=== PATIENT | male | born 1955 | race Caucasian/White ===

== ENCOUNTER 2023-11-20 21:14 | Inpatient (IN) | payer MEDICARE, SELFPAY ==
[2023-11-20 16:12] VITALS: BP 134/95
[2023-11-20 16:43] LABS: % Basophils 0.4 % (0-2); % Eosinophils 1.3 % (0-6); % Immature Granulocytes 0.4 % (0-0.5); % Lymphocytes 15.2 % (20.5-51.1); % Monocytes 11.9 % (1.7-9.3); % Neutrophils 70.8 % (42.2-75.2); Absolute Eosinophils 0.1 10^3/uL (0-0.7); Absolute Lymphocytes 1.7 10^3/uL (1.2-3.4); Absolute Monocytes 1.3 10^3/uL (0.1-0.6); Absolute Neutrophils 7.7 10^3/uL (1.4-6.5); Hematocrit 39.2 % (39.0-52.0); Hemoglobin 13.5 g/dL (13.0-18.0); Mean Corp Hgb Conc. 34.4 g/dL (33.0-37.0); Mean Corpuscular Hgb 29.6 pg (27.0-31.0); Mean Platelet Volume 9.7 fL (7.4-10.4); Nucleated Red Blood Cells % 0 % (-); Platelet Count 428 10^3/uL (130-400); Red Blood Cell Count 4.56 10^6/uL (4.70-6.10); Red Cell Dist. Width 13.5 % (11.5-14.5); White Blood Cell Count 10.9 10^3/uL (4.8-10.8)
[2023-11-20 16:52] LABS: COVID-19 Antigen Negative (Negative)
[2023-11-20 16:54] LABS: ALT (SGPT) 45 U/L (0-50); AST (SGOT) 26 U/L (17-59); Albumin 3.8 g/dl (3.5-5.0); Alkaline Phosphatase 93 U/L (38-126); Blood Urea Nitrogen 44 mg/dl (9-20); Calcium 9.4 mg/dl (8.4-10.2); Carbon Dioxide 26 mmol/L (22-30); Chloride 98 mmol/L (98-107); Glucose 247 mg/dl (70-99); Potassium 4.4 mmol/L (3.5-5.1); Sodium 135 mmol/L (135-145); Total Bilirubin 1.7 mg/dl (0.2-1.3); Total Protein 6.2 g/dl (6.3-8.2); eGFR > 60.00
[2023-11-20 17:04] LABS: NT-proBNP 327 pg/ml; Troponin I < 0.012 ng/ml
[2023-11-20 19:15] VITALS: BP 123/88
[2023-11-20] MEDS: LOW STRENGTH ASPIRIN 324 MG PO (19:18)
--- NOTE | 2023-11-20 19:21 | ED.GENMED ---
History of Present Illness
General
Chief Complaint: Chest Pain
Source: patient and spouse
Time Seen by Provider: 11/20/23 18:48
Travel History
Have you had any contact with someone who has COVID-19?: No
Do you have any symptoms of coronavirus? Fever > 100 degrees, chills, cough, shortness of breath, sore throat, loss of taste or smell, muscle aches, or headache?: No
History of Present Illness
History of Present Illness:
68-year-old male with past medical history of hypertension, hyperlipidemia, diabetes presenting to the emergency department for evaluation after he started to experience some chest tightness, lower extremity edema, exertional dyspnea and fatigue
over the last few days. Patient notes that 2 nights ago he went from his first floor upstairs to go to sleep and upon getting to the top of the stairs developed a chest pressure combined with shortness of breath that lasted about 5 minutes and
resolved spontaneously with rest. Patient states he was also concerned because he noticed some swelling to the bilateral lower extremities and felt that he had some distention in the lower part of his abdomen and could not fully button his jeans.
Patient states his symptoms at present are mainly exertional dyspnea and he is currently denying any chest discomfort. Patient notes he had a stress test about 10 years ago and believes the results of that test were unremarkable. Family history
was significant for mother having a cardiac event around the age of 70. Patient reports his last hemoglobin A1c was done a few weeks ago which alysia from 6.2-6.8 and patient's primary care increased his Trulicity.
Past History
Past History
ED Past Medical History: GERD, HTN, Hypercholesterolemia and NIDDM
ED Past Surgical History: Other (Bilateral inguinal hernia repair)
Social History
Tobacco: Non-smoker
Alcohol: None
Drug: None
Personal:
Living: with family
Employment: Employed
Family History
Family History: Other (No significant)
Review of Systems
Review of Systems
All Other Systems: ROS reviewed and negative except as documented in HPI and ROS
Phy Exam
Physical Exam
Physical Exam:
GENERAL: Alert , in no apparent distress
Head: Normocephalic atraumatic
EYE: conjunctiva clear
NECK: Supple
ENT: o/p clr, mmm.
CARDIAC: Regular rate and rhythm, no murmur
LUNGS: Clear breath sounds bilaterally, no acute respiratory distress, no wheezes/rales/rhonchi
Abdomen: Soft, nontender, nondistended
NEUROLOGICAL: Alert and oriented
SKIN: Warm and dry, skin intact.
MUSCULOSKELETAL: well perfused. Trace pitting edema to the distal third lower extremity
PSYCH: Normal and appropriate interaction.
Scores
Heart Score for Chest Pain Patients
STEMI patient?: No
History: Moderately Suspicious
ECG: Normal
Age: >/= 65 years
Risk Factors: 1 or 2 Risk Factors
Troponin: </= Normal Limit
Heart Score for Chest Pain Patients: 4
Heart Score Risk: 20.3% MACE over next 6 weeks
Course
Orders/Labs/Results
Orders:
Orders
11/20/23 16:31
CMP [Comprehensive Metabolic Panel] Urgent
COVID-19 Antigen Urgent
Source: Nasal Swab
Complete Blood Count/With Diff Urgent
NT-proBNP Urgent
Troponin I Urgent
11/20/23 19:10
Aspirin Chewable [Low Strength Aspirin] 324 mg PO NOW STA
CR Chest - 2 Views Urgent
Comment:
Reason For Exam: chest pain, SOB
11/20/23 19:14
Electrocardiogram (*1) Urgent
Reason for Study: Shortness of Breath
EKG- Treatment ONCE
Abnormal Lab Results
11/20/23
16:31
WBC 10.9 H 10^3/uL
(4.8-10.8)
RBC 4.56 L 10^6/uL
(4.70-6.10)
Plt Count 428 H 10^3/uL
(130-400)
Absolute Neuts (auto) 7.7 H 10^3/uL
(1.4-6.5)
Absolute Monos (auto) 1.3 H 10^3/uL
(0.1-0.6)
Lymphocytes % 15.2 L %
(20.5-51.1)
Monocytes % 11.9 H %
(1.7-9.3)
BUN 44 H mg/dl
(9-20)
Glucose 247 H mg/dl
(70-99)
Total Bilirubin 1.7 H mg/dl
(0.2-1.3)
Total Protein 6.2 L g/dl
(6.3-8.2)
11/20/23 16:31
11/20/23 16:31
Vital Signs
Initial and Last Documented VS:
Initial Vital Signs
Temp Pulse Resp BP Pulse Ox
98.1 F 100 16 134/95 100
11/20/23 16:12 11/20/23 16:12 11/20/23 16:12 11/20/23 16:12 11/20/23 16:12
Last Documented Vital Signs
Temp Pulse Resp BP Pulse Ox
98.1 F 104 17 121/104 98
11/20/23 16:12 11/20/23 19:30 11/20/23 19:30 11/20/23 20:03 11/20/23 19:37
MDM/Problems Addressed
Differential Diagnosis Includes:
Angina, NSTEMI, CHF/cardiomyopathy/valvular dysfunction, I do not have concern for infectious etiology, peripheral vascular disease
MDM/Problems Addressed:
68-year-old male present emergency department for evaluation of chest discomfort, exertional dyspnea, lower extremity edema and fatigue. 2 nights ago patient had an episode of what appears to be angina, currently chest pain-free. Labs were
initiated in triage and he has a reassuring troponin and a BNP. EKG did show a sinus tachycardia but otherwise no evidence for acute ischemic changes. Patient has multiple risk factors including hypertension, hyperlipidemia and at this time
seemingly uncontrolled diabetes with an elevated A1c on last recheck. Patient also has a family history with mother having a cardiac event in her 70s. Based off of these risk factors I do feel would be beneficial for patient to be admitted and
further evaluated by cardiology team. Patient and are in agreement with this plan. Will admit to hospitalist service.
Chronic conditions affecting care: DM and HTN
Acute Exacerbation and/or Progression of Chronic Illness: DM
*Pulse Oximetry
Patient hypoxic: no
*EKG
Interpreted by ED Provider?: Yes
Comparison EKG: no comparison EKG present
Heart Rate: 102
Rate: tachycardiac
Rhythm: sinus
[place]: normal axis
Ischemia: no ischemia
*Carpentry Foreman Interpretation
Rate: normal
Rhythm: sinus
*Critical Care Note
Total Time (30-74mins, 75-104mins- exclusive of procedures): Not Applicable
Patient Management
Discussion with other providers: Hospitalist
Escalation/DeEscalation of care consider admission/obs:
Hospitalist accepts patient for continued evaluation and treatment.
ED Attending Note
-
Portions of this chart may have been created with voice recognition software.� Occasional wrong word or��sound alike� substitutions may have occurred due to the inherent limitations of voice recognition software.
Discharge Plan
Departure
Patient Disposition: Admit
Date of Disposition: 11/20/23
Time of Disposition: 19:22
Presentation/result/management discussed w/ accepting MD/DO: Hospitalist
Discharge Problem:
Angina pectoris
Prescriptions:
No Action
metoprolol succinate 50 MG tablet extended release 24 hr
50 mg PO DAILY
omeprazole 40 MG capsule,delayed release(DR/EC)
40 mg PO QPM
ezetimibe 10 MG tablet
10 mg PO DAILY
glyburide-metformin 5 MG/500 MG tablet
1 tab PO BID Qty: 0 0RF
azithromycin 250 mg Tablet
0 mg PO .COMPLEX
Patient Comments:
PATIENT OUTPATIENT DIETITIAN ON 11/18/23
Rx Instructions:
For 250 mg dose pack: take 500 mg today (day 1), then 250 mg for 4 days (days 2-5)
tamsulosin [Flomax] 0.4 mg Capsule
0.4 mg PO QPM
amlodipine-benazepril 5-20 mg Capsule
1 cap PO DAILY
pioglitazone [Actos] 30 mg Tablet
30 mg PO DAILY
finasteride 5 mg Tablet
5 mg PO QPM
Trulicity 0.75 mg/0.5 mL Pen Injector
0.75 mg SC HARLEY
Interventions
Interventions:
*Risk Screen - Suicide Last Done: 11/20/23 19:27
*General Assessment Last Done: 11/20/23 19:27
*Neglect/Abuse Screening Last Done: 11/20/23 19:27
ED- Fall Risk Assessment Last Done: 11/20/23 19:27
*ED COVID-19 Vaccine History Last Done: 11/20/23 16:12
ED- Cardiac Assessment Last Done: 11/20/23 19:27
[2023-11-20 20:03] VITALS: BP 121/104
--- NOTE | 2023-11-20 20:33 | HPS.HSE ---
Addendum entered and electronically signed by Jonathan Montanez DO 11/20/23 21:08:
Patient seen and examined independently. Agree with findings and plan as set forth by Angelica Chang NP.
Patient is a 68y M with PMH significant for HTN and DM-II who presents to ED complaining of generalized fatigue, dyspnea with activity, weight gain and edema. Patient states that symptoms have been progressive over the past several days. He
notes 12 lbs weight gain in the past 2 weeks. He reports and episode several nights ago of left-sided chest pain, diaphoresis and SOB while climbing the stairs to go to bed. He did not seek medical attention at that time.
Patient has no prior history of known heart disease, etc.
Ass:
Chest Pain
Acute CHF - Unknown Type
Benign Hypertension
DM-II
BPH
Plan:
Admit for further evaluation and treatment.
Rule out ischemia - especially with episode of chest pain, diaphoresis, etc of a few days ago.
Clinically seems likely CHF here with weight gain, edema, dyspnea and fatigue.
IV Lasix and follow I/Os, daily weights, etc.
Check Echo.
Cardio evaluation for additional recommendations
Will likely benefit from eventual ischemic evaluation - timing to be determined.
Discontinue Actos indefinitely.
Hold other PO DM meds acutely and resume on discharge.
SSI coverage as needed. Update A1C.
Original Note:
Family Physician
-
Family Physician: Olya Suarez
Chief Complaint
-
Chest pain
History of Present Illness
68-year-old male with past medical history of hypertension, hyperlipidemia, diabetes presenting to the emergency department for chest tightness, lower extremity edema, exertional dyspnea and fatigue over the last few days.� He states that he has
noticed a 12 pound weight gain in the past 2 weeks. He says his b/l LEs are swollen and his abdomen feels full and distended. He also states that a few nights ago he had dyspnea on exertion after ascending a flight of stairs that lasted about 5
minutes and resolved spontaneously with rest.� Patient states he had a stress test over 10 years ago that was unremarkable.� Family history was significant for mother having a cardiac event around the age of 70.�
Medical History
Past Medical History
Past Medical History: Reports HTN, Hypercholesterolemia and NIDDM
Past Surgical History: Reports None
Social History
Tobacco: Non-smoker
Alcohol: None
Drug: None
Personal:
Living: With Family
Family History
Family History: Hypertension ([place] Mother)
Allergies / Home Medications
Allergies reflects when Allergies were last updated in [facility].
Home Medications with original date entered in [facility]
Allergy/Medication List:
Allergies
Allergy/AdvReac Type Severity Reaction Status Date / Time
No Known Allergies Allergy Verified 07/29/16 22:41
Home Medications
ezetimibe 10 mg tablet 10 mg PO DAILY 07/29/16
metoprolol succinate 50 mg tablet,extended release 24 hr 50 mg PO DAILY 07/29/16
omeprazole 40 mg capsule,delayed release 40 mg PO QPM 07/29/16
glyburide 5 mg-metformin 500 mg tablet 1 tab PO BID ##0 08/01/16
amlodipine 5 mg-benazepril 20 mg capsule 1 cap PO DAILY 11/20/23
azithromycin 250 mg tablet 0 mg PO .COMPLEX 11/20/23
dulaglutide 0.75 mg/0.5 mL subcutaneous pen injector (Trulicity) 0.75 mg SC HARLEY 11/20/23
finasteride 5 mg tablet 5 mg PO QPM 11/20/23
pioglitazone 30 mg tablet (Actos) 30 mg PO DAILY 11/20/23
tamsulosin 0.4 mg capsule (Flomax) 0.4 mg PO QPM 11/20/23
Review of Systems
-
History Source: Patient
A 12 point ROS was completed and negative except as noted: Yes
Constitutional: Reports Weight Gain and Fatigue
EENT: Reports No Symptoms
Respiratory: Reports Cough
Cardiac: Reports Chest Pain
Abdomen/GI: Reports No Symptoms
: Reports No Symptoms
Musculoskeletal: Reports Edema (b/l LE)
Skin: Reports No Symptoms
Neurological: Reports No Symptoms
Endocrine: Reports No Symptoms
Hematologic/Lymphatic: Reports No Symptoms
Psych: Reports No Symptoms
Physical Exam
Vital Signs
Vital Signs
Temp Pulse Resp BP Pulse Ox
98.1 F 104 17 121/104 98
11/20/23 16:12 11/20/23 19:30 11/20/23 19:30 11/20/23 20:03 11/20/23 19:37
Physical Exam
General: Well Developed, Well Nourished and Conversant
HEENT: NormoCephalic, Anicteric, Moist mucous membranes and Atraumatic
Respiratory: Clear
Cardiac: S1/S2 and Regular Rhythm
Breast: Deferred by me
GI: Soft, Non Tender and Distended
Rectal: Deferred by Provider
Genito-urinary: Deferred by me
Musculoskeletal: No Clubbing, No Cyanosis, Edema, Left Lower Extremity (+2 pitting edema) and Edema, Right Lower Extremity (+2 pitting edema)
Skin: Warm and Dry
Neuro: Awake, Alert, Oriented and AO x 3
Hematologic/Lymphatic: No Lymphadenopathy
Psych: Calm and Intact Judgment/Insight
Laboratory Results
-
11/20/23 16:31
11/20/23 16:31
Laboratory Results
Total Bilirubin 1.7 mg/dl (0.2-1.3) H 11/20/23 16:31
AST 26 U/L (17-59) 11/20/23 16:31
ALT 45 U/L (0-50) 11/20/23 16:31
Alkaline Phosphatase 93 U/L (38-126) 11/20/23 16:31
Troponin I < 0.012 ng/ml 11/20/23 16:31
Impression/Plan
-
IMPRESSION/PLAN:
Admit to Telemetry under Hospitalist service
#Acute Heart Failure
-c/s Cardiology
-Initial troponin negative, monitor and trend to peak
-EKG shows sinus tachycardia
-Start Lasix 20mg IV now
#Essential Hypertension
-Continue amlodipine-benazepril
#HLD
-Continue ezetimibe, patient allergic to statins
#NIDDM
-Hold oral hypoglycemics while acutely ill
-SSI
-Check Hgb A1c in am
#Benign prostatic hyperplasia
-Continue flomax and finasteride
Full Code
DVT Prophylaxis: Lovenox
[2023-11-20] MEDS: LASIX 20 MG IV (20:38)
[2023-11-20 21:46] VITALS: BMI 29.8
[2023-11-20 21:47] VITALS: BP 133/85
[2023-11-20 22:12] LABS: Troponin I < 0.012 ng/ml
--- NOTE | 2023-11-20 22:33 | PTCARENOTE ---
Pt. admitted from E.D., AAO x 3, vs stable, ST on monitor, call amador within reach.
[2023-11-20 23:48] LABS: Glucose - Point of Care 276 mg/dl (70-99)
[2023-11-21 01:08] LABS: Troponin I < 0.012 ng/ml
[2023-11-21 03:13] VITALS: BP 114/81
[2023-11-21 05:53] LABS: Glucose - Point of Care 238 mg/dl (70-99)
[2023-11-21 05:56] LABS: % Basophils 0.4 % (0-2); % Eosinophils 1.6 % (0-6); % Immature Granulocytes 0.4 % (0-0.5); % Lymphocytes 16.1 % (20.5-51.1); % Neutrophils 69.5 % (42.2-75.2); Absolute Eosinophils 0.2 10^3/uL (0-0.7); Absolute Lymphocytes 1.7 10^3/uL (1.2-3.4); Absolute Monocytes 1.2 10^3/uL (0.1-0.6); Absolute Neutrophils 7.2 10^3/uL (1.4-6.5); Hematocrit 36.6 % (39.0-52.0); Hemoglobin 12.3 g/dL (13.0-18.0); Mean Corp Hgb Conc. 33.6 g/dL (33.0-37.0); Mean Corpuscular Hgb 29.6 pg (27.0-31.0); Mean Platelet Volume 10.3 fL (7.4-10.4); Nucleated Red Blood Cells % 0 % (-); Platelet Count 375 10^3/uL (130-400); Red Blood Cell Count 4.16 10^6/uL (4.70-6.10); Red Cell Dist. Width 13.3 % (11.5-14.5); White Blood Cell Count 10.3 10^3/uL (4.8-10.8)
[2023-11-21 06:00] VITALS: BMI 29.8
[2023-11-21 06:19] LABS: ALT (SGPT) 40 U/L (0-50); AST (SGOT) 23 U/L (17-59); Albumin 3.3 g/dl (3.5-5.0); Alkaline Phosphatase 86 U/L (38-126); Blood Urea Nitrogen 55 mg/dl (9-20); Carbon Dioxide 24 mmol/L (22-30); Chloride 97 mmol/L (98-107); Estimated Creatinine Clearance 49 ml/min; Glucose 247 mg/dl (70-99); Potassium 4.9 mmol/L (3.5-5.1); Sodium 131 mmol/L (135-145); Total Bilirubin 1.2 mg/dl (0.2-1.3); Total Protein 5.7 g/dl (6.3-8.2); Troponin I < 0.012 ng/ml; eGFR 46.93
[2023-11-21] MEDS: NOVOLOG FLEXPEN-LOW RESISTANCE 2 UNITS SC ×2 (07:26→11:22)
[2023-11-21] MEDS: ZETIA 10 MG PO (08:11)
[2023-11-21] MEDS: LOW STRENGTH ASPIRIN 81 MG PO (08:11)
[2023-11-21] MEDS: LOTREL 5 MG/20 MG 1 CAPSULE PO (08:16)
[2023-11-21] MEDS: LASIX 20 MG IV (08:17)
--- NOTE | 2023-11-21 10:18 | W.PN.HOSP.TC ---
Addendum entered and electronically signed by Rj Fleming DO 11/21/23 15:01:
Lower extremity bilateral Doppler ultrasound negative for DVT.
D-dimer elevation noted.
Hold off on CT PE given ARMANDO.
Unable to do pulmonary ventilation/perfusion lung scan given weekend.
Spoke with cardiology as well as patient. Plan to start IV heparin empirically awaiting further workup for pulmonary embolism on Wednesday. If renal function improves, can consider doing CT PE on Wednesday. Otherwise will need pulmonary
ventilation/perfusion lung scan to rule out pulmonary embolism. Patient agrees with plan.
Original Note:
Today's Communication/Plan
-
Resume diet
Cardiology consult
Stop Lasix
Stop AKIN inhibitor
Labs in the morning
Assessment / Plan
Assessment / Plan
Gen-AAOx3, NAD, obese
HEENT-NC, AT, anicteric, clear oral mm
Neck-supple
CV-reg, no M, +S1/S2
Lungs-clear B/L
Abd-soft, NT, ND
Ext-no edema
Musculoskeletal-no cyanosis, clubbing
Skin-warm and dry
Neuro-grossly non-focal
Psych-calm, cooperative
Chest pressure -unclear if angina versus other etiology. Troponins negative. Monitor on telemetry. Cardiology consulted. Complaining of also dyspnea on exertion. States he had a negative stress test 20 years ago.
Resume diet today.
No convincing evidence of congestive heart failure. Chest x-ray clear. BNP 327. Not overtly volume overloaded.
ARMANDO -hold further doses of Lasix. Stop AKIN inhibitor. Check bladder scan. Repeat labs in the morning.
Hyponatremia - due to hyperglycemia.
DM2 with hyperglycemia -hemoglobin A1c 7.0%. Glucose 247 this morning. Hold oral agents, use low resistance aspart scale.
BPH
Obesity due to excess calories
Full code
Anticipated Discharge: 24 - 48 hours
Subjective/Interval History
-
Date of Service: November 21, 2023
Patient seen and examined. Complaining of feeling lightheaded.
Objective Data
-
Labs:
Laboratory Results
11/21/23
05:36
WBC 10.3
Hgb 12.3 L
Hct 36.6 L
Plt Count 375
Sodium 131 L
Potassium 4.9
Chloride 97 L
Carbon Dioxide 24
BUN 55 H
Creatinine 1.6 H
Glucose 247 H
Calcium 9.0
Total Bilirubin 1.2
AST 23
ALT 40
Alkaline Phosphatase 86
Vital Signs:
Vital Signs
Temp Pulse Resp BP Pulse Ox
97.8 F 96 16 114/81 98
11/21/23 03:13 11/21/23 03:13 11/21/23 03:13 11/21/23 03:13 11/21/23 03:13
Review of Systems
-
History Source: Patient
All other systems: Reviewed and negative
--- NOTE | 2023-11-21 10:29 | CON.CAR ---
Consultation
Consultation Request
Date/Time Consultation Requested: 11/20/2023 at 2030
Date/Time Consultation Performed: 11/21/2023 at 11 AM
Requesting Provider: Melvina Chang
Performing Provider: Cristofer Tran
Reason for Consultation: Chest pain, CHF
Medical History
-
Chief Complaint: Chest pain, dyspnea
History of Present Illness:
68-year-old man who is developed generalized fatigue, [place], edema and weight gain over the course of several days. His weight is up about 12 pounds. He is also had some left-sided chest climbing stairs yesterday. His son says he has not been well
since he fell striking the left side of his body about a month ago. He has lower extremity edema left greater than right. His dyspnea was notable about a week ago, and also with bending over. He is only had 1 episode of chest discomfort. No
history of phlebitis.
PMH:
Hypertension
Hypercholesterolemia
Type 2 diabetes
Past Medical History
Past Medical History: Other (See HPI)
Past Surgical History: None
Social History
Tobacco: Non-Smoker
Alcohol: None
Drug: None
Personal:
Living: With Family
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
Family History
Family History: Reviewed & Not Pertinent
Allergies / Home Medications
Allergy/AdvReac Type Severity Reaction Status Date / Time
No Known Allergies Allergy Verified 07/29/16 22:41
Medication Instructions Recorded Confirmed Type
ezetimibe 10 mg tablet 10 mg PO DAILY High Cholesterol 07/29/16 11/20/23 History
metoprolol succinate 50 mg 50 mg PO DAILY Blood Pressure 07/29/16 11/20/23 History
tablet,extended release 24 hr
omeprazole 40 mg capsule,delayed 40 mg PO QPM Gastrointestinal Issue 07/29/16 11/20/23 History
release
glyburide 5 mg-metformin 500 mg 1 tab PO BID ##0 08/01/16 11/20/23 Rx
tablet
amlodipine 5 mg-benazepril 20 mg 1 cap PO DAILY Blood Pressure 11/20/23 11/20/23 History
capsule
azithromycin 250 mg tablet 0 mg PO .COMPLEX Infection 11/20/23 11/20/23 History
dulaglutide 0.75 mg/0.5 mL 0.75 mg SC HARLEY Diabetes 11/20/23 11/20/23 History
subcutaneous pen injector
(Trulicity)
finasteride 5 mg tablet 5 mg PO QPM Urinary Issue 11/20/23 11/20/23 History
pioglitazone 30 mg tablet (Actos) 30 mg PO DAILY Diabetes 11/20/23 11/20/23 History
tamsulosin 0.4 mg capsule (Flomax) 0.4 mg PO QPM Urinary Issue 11/20/23 11/20/23 History
Review of Systems
-
All other systems: Negative unless noted
Physical Exam
Vital Signs
Temp Pulse Resp BP Pulse Ox
36.6 C 96 16 114/81 98
11/21/23 03:13 11/21/23 03:13 11/21/23 03:13 11/21/23 03:13 11/21/23 03:13
Lab Results
11/21/23 05:36
11/21/23 05:36
Troponin I < 0.012 ng/ml 11/21/23 05:36
Yer-R-Hcrsnpowees Pept 327 pg/ml 11/20/23 16:31
Physical Exam
General: No Apparent Distress
HEENT: Normocephalic
Respiratory: Clear and Other (Perhaps mildly tachypneic.)
Cardiac: S1/S2, Regular Rhythm and JVD (Possibly elevated)
GI: Soft and Non Distended
Musculoskeletal: Edema (With prominent varicosities on right, with edema that is asymmetric, right greater than left)
Skin: Dry
Neuro: AO x 3
Impression / Plan
-
Impression:
Chest discomfort, dyspnea on exertion, weight gain
Hypertension
Hypercholesterolemia
Type 2 diabetes
ARMANDO on mild CKD
Plan:
He presents with a picture that does not hang together well. His chest pain occurred with exertion but his D-dimer is undetectable. ACS possible but seems relatively unlikely.
Similarly, he tells a story consistent with heart failure and he has edema, but if heart failure is present it is mostly right-sided. His lungs are clear his chest x-ray is fairly unimpressive.
I have some concerns about thromboembolic disease with asymmetric swelling in the legs dyspnea and left-sided chest pain with a small left pleural effusion. Will check a cheat D-dimer and an ultrasound of the leg veins. CT scan could be
problematic given that he has acute kidney injury now and having received doses of Lasix.
Agree with holding Lasix.
Will check an echocardiogram. Will eventually need to consider an ischemic evaluation, invasive versus noninvasive.
Data Reviewed
-
EKG: Tracing Personally Visualized and interpreted (Sinus rhythm, nonspecific ST and T changes)
Radiology: Image Personally Visualized and interpreted (Chest x-ray mild cardiomegaly, mild vascular congestion)
Labs: Labs Reviewed by me (Hemoglobin 12.3, white count 10.3, sodium 131, potassium 4.9, BUN and creatinine 55 and 1.6, creatinine was 1.3 on the 24th, proBNP is 327, troponin is undetectable)
Old Records: Reviewed
[2023-11-21 10:59] LABS: Glucose - Point of Care 247 mg/dl (70-99)
[2023-11-21 11:33] LABS: D-Dimer 1.94 ug/mlFEU (0.00-0.50)
[2023-11-21 12:40] VITALS: BP 129/84
[2023-11-21 13:30] LABS: Glucose - Point of Care 360 mg/dl (70-99)
[2023-11-21 15:24] LABS: Hematocrit 37.4 % (39.0-52.0); Hemoglobin 12.5 g/dL (13.0-18.0); Mean Corp Hgb Conc. 33.4 g/dL (33.0-37.0); Mean Corpuscular Hgb 29.4 pg (27.0-31.0); Mean Platelet Volume 10.3 fL (7.4-10.4); Platelet Count 410 10^3/uL (130-400); Red Blood Cell Count 4.25 10^6/uL (4.70-6.10); Red Cell Dist. Width 13.6 % (11.5-14.5)
[2023-11-21 15:31] LABS: APTT 36.8 Sec (23.4-35.0)
--- NOTE | 2023-11-21 15:36 | CM ---
CM following re: d/c planning.
CM met with pt and at bedside to complete IA.
They reside together in private residence.
Pt reports he is independent with mobility and ADLs.
No DME or VN in the home.
PCP is Dr. Suarez and pharmacy is [facility] in [place].
Pt does not expect any d/c needs.
CM will continue to follow.
[2023-11-21 15:52] VITALS: BP 133/82
[2023-11-21] MEDS: HEPARIN 8000 UNITS IV (16:33)
[2023-11-21] MEDS: HEPARIN 25000 UNITS/250 ML IV (16:34)
[2023-11-21] MEDS: NOVOLOG FLEXPEN-LOW RESISTANCE 5 UNITS SC (17:57)
[2023-11-21] MEDS: PROSCAR 5 MG PO (17:57)
[2023-11-21] MEDS: FLOMAX 0.400000000000000022 MG PO (17:57)
[2023-11-21] MEDS: PROTONIX 40 MG PO (17:57)
[2023-11-21 17:58] LABS: Glucose - Point of Care 353 mg/dl (70-99)
[2023-11-21] MEDS: NOVOLOG FLEXPEN 6 UNITS SC (17:58)
[2023-11-21 19:00] VITALS: BP 118/84
[2023-11-21 21:34] LABS: Glucose - Point of Care 257 mg/dl (70-99)
[2023-11-21] MEDS: LANTUS 0.100000000000000006 UNITS SC (21:34)
[2023-11-21] MEDS: NOVOLOG FLEXPEN-LOW RESISTANCE 3 UNITS SC (21:35)
[2023-11-21 23:00] VITALS: BP 108/73
[2023-11-21 23:58] LABS: APTT 180.4 Sec (23.4-35.0)
[2023-11-22] VITALS (33 sets, daily range): BP systolic 85–148; BP diastolic 56–93; BMI 30.4; BMI 30.6
[2023-11-22 07:30] LABS: Glucose - Point of Care 266 mg/dl (70-99)
[2023-11-22 08:05] LABS: APTT 67.6 Sec (23.4-35.0)
[2023-11-22 08:11] LABS: Blood Urea Nitrogen 68 mg/dl (9-20); Calcium 8.8 mg/dl (8.4-10.2); Carbon Dioxide 17 mmol/L (22-30); Chloride 96 mmol/L (98-107); Estimated Creatinine Clearance 59 ml/min; Glucose 256 mg/dl (70-99); Potassium 4.5 mmol/L (3.5-5.1); Sodium 128 mmol/L (135-145); eGFR 50.71
--- NOTE | 2023-11-22 08:29 | W.PN.HOSP.TC ---
Today's Communication/Plan
-
Transferred to ICU after AFib RVR, unresponsiveness episode, lightheadedness
Echo showed tamponade
Pericardiocentesis today
High risk encounter
Assessment / Plan
Assessment / Plan
68-year-old male presented with myriad complaints of dyspnea on exertion, weakness, chest pressure. Initially felt to be heart failure exacerbation but I am not convinced. Cardiology consulted. D-dimer elevated but creatinine rising and will hold
off on CT scan. Await echocardiogram. Doppler ultrasound of the legs negative. Empiric IV heparin started pending further workup for PE on Wednesday.
Physical Exam
Gen-AAOx3, NAD, obese
HEENT-NC, AT, anicteric, clear oral mm
Neck-supple
CV-reg, no M, +S1/S2
Lungs-clear B/L
Abd-soft, NT, ND
Ext-no edema
Musculoskeletal-no cyanosis, clubbing
Skin-warm and dry
Neuro-grossly non-focal
Psych-calm, cooperative
Assessment/Plan
Chest pressure
Dyspnea on Exertion
Lower Extremity Edema
Lightheadedness, worsening chest tightness and rapid heart heart rate on November 22, 2023 Morning
Unresponsiveness (vagal vs TIA vs PE vs cardiac tamponade) - RESOLVED SPONTANEOUSLY - on November 22, 2023 Morning
Decorticate Posturing - RESOLVED - on November 22, 2023 Morning
-On November 22, 2023, patient had atrial fibrillation with RVR followed shortly after by an acute episode of unresponsiveness with decorticate posturing, but never actually lost pulses: Code 9 was initially called but subsequently amended to Rapid
Response Team.
-Transferred patient to ICU; continue to monitor in ICU
-Echocardiogram showed, as per cardiology: 'evidence of pericardial tamponade with respiratory variation and moderate to severe circumferential pericardial effusion'
-Tamponade with associated hypotension was present, patient received IV fluids
-Stat CT Head
-Neurology consulted, recommendations appreciated
-Appreciate cardiology recommendations: IV Cardizem as per cardiology, may also need antiarrhythmic
Atrial Fibrillation with RVR
Hypotension
-Monitor in ICU
-IV fluids for hypotension
-Cardizem drip was initially ordered, but later held due to hypotension and heart rate improved
ARMANDO -hold further doses of Lasix. Stop AKIN inhibitor. Check bladder scan. Repeat labs in the morning.
Hyponatremia - due to hyperglycemia. Will consider consulting nephrology.
DM2 with hyperglycemia -hemoglobin A1c 7.0%. Hold oral agents, use moderate resistance aspart scale. Consider Diabetes HEARING CONSULTANT consultation.
HTN
Hypercholesterolemia
BPH
Obesity due to excess calories
Full code
On November 22, 2023, I spoke to patient's Dana and updated her on patient's medical condition and the events leading to patient's transfer to ICU.
Total time spent today on reviewing patient's chart, seeing and examing the patient, placing orders, transferring patient to ICU and speaking with document control supervisor and pattern ruler, documentation and speaking with patient's family, was 80 minutes. This
is also a high risk encounter due to unresponsiveness, hypotension, and pericardial tamponade.
Anticipated Discharge: > 48 hours
Subjective/Interval History
-
Date of Service: November 22, 2023
Patient was seen and examined. Earlier in the morning, he reported profound fatigue on exertion, chest tightness (which he has recently in the past several days) as well as cough, but later in the morning he developed lightheadedness, worsening
chest tightness and rapid heart heart rate. Later in the morning, patient had unresponsiveness and per nurse demonstrated decorticate posturing and gagging.
Objective Data
-
Labs:
Laboratory Results
11/21/23 11/22/23
23:18 07:08
APTT 180.4 H* 67.6 H
Sodium 128 L
Potassium 4.5
Chloride 96 L
Carbon Dioxide 17 L
BUN 68 H
Creatinine 1.5 H
Glucose 256 H
Calcium 8.8
Vital Signs:
Vital Signs
Temp Pulse Resp BP Pulse Ox
97.7 F 96 18 124/79 100
11/22/23 03:00 11/22/23 03:00 11/22/23 03:00 11/22/23 03:00 11/22/23 03:00
I&O
11/21/23 11/22/23 11/23/23
06:59 06:59 06:59
Intake Total 720 / 720 480 / 480
Output Total 225 / 225 300 / 300
Balance 495 / 495 180 / 180
[2023-11-22 08:41] LABS: TSH 1.59 uIU/ml (0.47-4.68)
[2023-11-22] MEDS: HEPARIN 25000 UNITS/250 ML IV ×2 (08:58→18:14)
[2023-11-22] MEDS: HEPARIN 4000 UNITS IV (08:58)
[2023-11-22] MEDS: ZETIA 10 MG PO (09:07)
[2023-11-22] MEDS: LOW STRENGTH ASPIRIN 81 MG PO (09:07)
[2023-11-22] MEDS: NOVOLOG FLEXPEN 6 UNITS SC ×2 (09:07→17:41)
[2023-11-22] MEDS: NOVOLOG FLEXPEN-LOW RESISTANCE 3 UNITS SC (09:07)
[2023-11-22] MEDS: LOPRESSOR 5 MG IV (09:46)
--- NOTE | 2023-11-22 09:48 | W.PN.CARDCBS ---
Today's Communication / Plan
-
He was in rapid AFib. IV Lopressor 5 mg IV a few minutes later episode of unresponsiveness for few seconds then spontaneous return to fully awake and oriented. Unclear if vagal vs TIA vs PE.
Heating Element Builder evaluating and V/Q ordered.
IV Cardizem for rate control.
Consider Amiodarone next 24 hrs but given episode will hold for now.
He may have been having symptomatic AFib prior to admission. He has felt some chest pressure and some wt gain over 2 weeks prior to admit.
Evenutal rhythm control therapy.
Check echo
Check troponins. Troponins have been negative.
Check EKG.
Eventual ischemic eval likely outpt.
Agree with PE work up and neuro work up. Head CT pending.
Impression / Plan
-
.
Impression:
Presented with chest discomfort, dyspnea on exertion, weight gain
PAFib with RVR, new diagnosis
Episode of unresponsiveness, unclear etiology, rule out TIA, seizure, vagal
Hx Hypertension
Hypercholesterolemia
Type 2 diabetes
ARMANDO on mild CKD
Plan:
He was in rapid AFib. IV Lopressor 5 mg IV a few minutes later episode of unresponsiveness for few seconds then spontaneous return to fully awake and oriented. Unclear if vagal vs TIA vs PE.
Heating Element Builder evaluating and V/Q ordered.
IV Cardizem for rate control.
Consider Amiodarone next 24 hrs but given episode will hold for now.
He may have been having symptomatic AFib prior to admission. He has felt some chest pressure and some wt gain over 2 weeks prior to admit.
Evenutal rhythm control therapy.
Check echo
Check troponins. Troponins have been negative.
Check EKG.
Eventual ischemic eval likely outpt.
Agree with PE work up and neuro work up. Head CT pending.
Discussed with nursing and with Heating Element Builder and primary service.
CCT: 45 min
Progress Note - Big Data Software Engineer
Subjective
Date of Service: November 22, 2023
Pt seen and examined. Some chest pain or shortness of breath today. Pt was diaphoretic after episode.
Objective
Labs:
Labs
Hgb 12.5 g/dL (13.0-18.0) L 11/21/23 15:08
Hct 37.4 % (39.0-52.0) L 11/21/23 15:08
Plt Count 410 10^3/uL (130-400) H 11/21/23 15:08
APTT 67.6 Sec (23.4-35.0) H 11/22/23 07:08
Sodium 128 mmol/L (135-145) L 11/22/23 07:08
Potassium 4.5 mmol/L (3.5-5.1) 11/22/23 07:08
BUN 68 mg/dl (9-20) H 11/22/23 07:08
Creatinine 1.5 mg/dL (0.7-1.3) H 11/22/23 07:08
Glucose 256 mg/dl (70-99) H 11/22/23 07:08
Troponins
11/20/23 11/20/23 11/21/23
16:31 21:42 00:19
Troponin I < 0.012 < 0.012 < 0.012
11/21/23
05:36
Troponin I < 0.012
Vital Signs and I&O:
Vital Signs
Temp Pulse Resp BP Pulse Ox
97.6 F 93 18 117/78 99
11/22/23 07:05 11/22/23 07:05 11/22/23 07:05 11/22/23 07:05 11/22/23 07:05
Vital Signs
Temp Pulse Resp BP Pulse Ox
97.6 F 93 18 117/78 99
11/22/23 07:05 11/22/23 07:05 11/22/23 07:05 11/22/23 07:05 11/22/23 07:05
Intake & Output
11/20/23 11/21/23 11/22/23 11/23/23
06:59 06:59 06:59 06:59
Intake Total 720 / 720 480 / 480
Output Total 225 / 225 300 / 300
Balance 495 / 495 180 / 180
Physical Exam
Physical Exam
General: No acute distress, AAOX3
Neck: Negative JVD
Heart: Irregularly irregular, Negative S3 positive S1/S2, Negative S4, No murmur
Lungs: CTA b/l, negative wheezes/rales/rhonchi
Abd: Positive BS, NT/ND, neg rebound/rigidity/guarding
Ext: Negative cyanosis/clubbing/edema
Neuro: nonfocal
[2023-11-22 10:03] LABS: Glucose - Point of Care 274 mg/dl (70-99)
[2023-11-22] MEDS: CARDIZEM 125 IV (10:04)
--- NOTE | 2023-11-22 10:04 | CON.INTV ---
Consultation
Consultation Request
Date/Time Consultation Requested: 11/22/23
Date/Time Consultation Performed: 11/22/23
Performing Provider: Michelle
Reason for Consultation: SOB
Medical History
-
History of Present Illness:
Patient is a 68 year old M with PMH significant for HTN and DM-II presents to ED 11/20/23 complaining of generalized fatigue, WESLEY, weight gain and LE edema for the past several days.� He notes 12 lbs weight gain in the past 2 weeks; intermittent
left-sided chest pain, diaphoresis and SOB.� Patient has no prior history of known heart disease, does not follow with cardiology OP.
Admitted 11/20 for w/u, developed acute on chronic SOB symptoms this AM with HR max 170s in AFib with RVR. Had acute episode of unresponsiveness with noted rigidity but never lost pulses. Code 9 called amended to BUTTON TUFTING MACHINE OPERATOR. Patient otherwise
hemodynamically stable, BP/sat/temp.
On my arrival, patient mentating, can converse. Notes ongoing SOB, malaise, dizziness/lightheadedness, chest tightness.
CT planning on hold for PE due to ARMANDO, ECHO pending as well.
Denies prior history of lung disease, never smoker. Initial CXR showing trace effusion. He is 99% on RA.
Past Medical History
Past Medical History: HTN and NIDDM
Past Surgical History: Other
Social History
Tobacco: Non-smoker
Alcohol: None
Drug: None
Family History
Family History: Reviewed & Not Pertinent
Allergies / Home Medications
Allergies
Allergy/AdvReac Type Severity Reaction Status Date / Time
No Known Allergies Allergy Verified 07/29/16 22:41
Home Medications
Medication Instructions Recorded Confirmed Last Taken Type
ezetimibe 10 mg tablet 10 mg PO DAILY High Cholesterol 07/29/16 11/20/23 11/20/23 History
metoprolol succinate 50 mg 50 mg PO DAILY Blood Pressure 07/29/16 11/20/23 11/20/23 History
tablet,extended release 24 hr
omeprazole 40 mg capsule,delayed 40 mg PO QPM Gastrointestinal Issue 07/29/16 11/20/23 11/19/23 History
release
glyburide 5 mg-metformin 500 mg 1 tab PO BID ##0 08/01/16 11/20/23 11/20/23 Rx
tablet
amlodipine 5 mg-benazepril 20 mg 1 cap PO DAILY Blood Pressure 11/20/23 11/20/23 11/20/23 History
capsule
azithromycin 250 mg tablet 0 mg PO .COMPLEX Infection 11/20/23 11/20/23 11/20/23 History
dulaglutide 0.75 mg/0.5 mL 0.75 mg SC HARLEY Diabetes 11/20/23 11/20/23 11/14/23 History
subcutaneous pen injector
(Trulicity)
finasteride 5 mg tablet 5 mg PO QPM Urinary Issue 11/20/23 11/20/23 11/19/23 History
pioglitazone 30 mg tablet (Actos) 30 mg PO DAILY Diabetes 11/20/23 11/20/23 11/20/23 History
tamsulosin 0.4 mg capsule (Flomax) 0.4 mg PO QPM Urinary Issue 11/20/23 11/20/23 11/19/23 History
Review of Systems
-
History Source: Patient
All other systems: Negative unless noted
Vitals / Labs / Diagnostic Testing
Vital Signs
Temp Pulse Resp BP Pulse Ox
97.6 F 93 18 117/78 99
11/22/23 07:05 11/22/23 07:05 11/22/23 07:05 11/22/23 07:05 11/22/23 07:05
Laboratory Results
11/21/23 11/21/23 11/22/23
15:08 23:18 07:08
APTT 36.8 H 180.4 H* 67.6 H
Diagnostic Testing:
Physical Exam
-
HEENT: Normocephalic, Anicteric and Moist Mucous Membranes
Cardiovascular: S1/S2, Irregular Rhythm (tachy) and Peripheral Edema (trace/mild)
Respiratory: Clear and Non-Labored Respirations
GI: Soft, Non Distended, Non Tender and Normal Bowel Sounds
Neurology: Awake, Alert, Oriented, AO x 3 and No Motor Deficits
Skin: Warm, Dry and Good Color
General: Comfortable and Other (NAD, obese)
Assessment
-
Patient is a 68 year old M with PMH significant for HTN and DM-II presents to ED 11/20/23 complaining of generalized fatigue, WESLEY, weight gain and LE edema, developed acute on chronic SOB symptoms this AM with HR max 170s in AFib with RVR. Had
acute episode of unresponsiveness with noted rigidity but never lost pulses. Code 9 called amended to BUTTON TUFTING MACHINE OPERATOR. Transfer initiated to ICU, we are consulted for eval.
Acute onset unresponsiveness, never lost pulses/no arrest, resolved spontaneously
Afib with RVR
WESLEY
LE edema
Trace pleural effusion suspicious for HFpEF
Malaise/lightheadedness
ARAMNDO
Hyponatremia
Metabolic acidosis, possible DKA
Hyperglycemia
Conditions SATIN FINISHER
HTN
Hypercholesterolemia
NIDDM
Bilateral hernia repair
[place] teeth
Obesity BMI 30.3
Plan
No current signs of metabolic encephalopathy or MS changes/following commands
Denies pain at this time.
Pain/sedation: PRN
RASS goals: 0
CT head pending
Hemodynamically stable, not requiring pressors.
Afib noted, will be placed on IV Cardizem
Cardiac history reviewed--HTN, but had not had OP FU
Cards consult appreciated, rate control
No prior ECHO for review-- new study pending today
Repeat proBNP, trops to be sent
Monitor on telemetry
Oxygen needs: stable on RA, 99%
Denies prior history of lung disease, never smoker.
Initial CXR showing trace effusion.
Supplemental O2 as indicated to maintain sats > 89% if needed
D-dimer elevated, VQ ordered as CTA not able to be done
Duplex negative to date
Risk factor of BMI
He is also at risk for OSAS, can eval with sleep study as OP
NPO, resume diet when able
Parachutist/Combatant Diver Qualified recommendations
Aspiration precautions, HOB > 30 degrees
Speech therapy eval can be considered if at elevated risk
GI prophylaxis if indicated
ARMANDO present, trend for now, repeat BMP
Creat at baseline 0.8-1.0, no history of renal disease
Void trials
Follow urine output, critical I/Os
Replete electrolytes as needed
Acid/base status: metabolic acidosis, unclear cause, AG 15 (possible early DKA)
BG elevated, treat with SQ-- if not improving, consider gtt
No signs/symptoms suspicious for infectious etiology at this time
Observe off antibiotics for now
MRSA neg in past, screen pending
Follow fever trend, WBC count
Repeat lactate on labs
Possible VTE suspected, placed on IV heparin
PTT per protocol
CBC stable, no signs of bleeding or coagulopathy.
DVT prophylaxis as assessed based on risk, including mechanical SCDs
Can transfuse if indicated for Hb <7, plt < 10
D-dimer elevated, possibly BMI/age adjustments but will r/o with VQ scan
Duplex negative
No prior h/o thyroid disease
H/o diabetes, can continue on home meds, SS for coverage
Adjustments to avoid DKA, BS elevated
HbA1c 7.0 (11/20/23), previous 7.2 in 2016
To transfer to ICU, reviewed with CCRNs
We will follow
Diagnostic Data
Duplex 11/21/23: No evidence of deep venous thrombosis bilaterally.
CXR 11/20/23: IMPRESSION: Suspected tiny left pleural effusion.
CT Pelvis 2016: IMPRESSION:
1. Skin thickening and subcutaneous inflammatory change within the left inguinal crease consistent with a cellulitis. No associated organized fluid collections.
2. Discogenic disease at L4-5.
-----
Critical Care time 75 mins -- this includes review of history, physical exam, medications, hemodynamic/ventilator parameters, laboratory data, imaging and discussion with house staff, pharmacy, respiratory therapy, pump tester, and nursing.
Additional time for my personal participation in code 9/BUTTON TUFTING MACHINE OPERATOR and discussion of plan/coordination with care team.
[2023-11-22 10:16] LABS: Hematocrit 39.4 % (39.0-52.0); Hemoglobin 13.5 g/dL (13.0-18.0); Mean Corp Hgb Conc. 34.3 g/dL (33.0-37.0); Mean Corpuscular Hgb 29.3 pg (27.0-31.0); Mean Corpuscular Volume 85.7 fL (80.0-94.0); Mean Platelet Volume 10.6 fL (7.4-10.4); Platelet Count 464 10^3/uL (130-400); Red Cell Dist. Width 13.4 % (11.5-14.5); White Blood Cell Count 11.1 10^3/uL (4.8-10.8)
[2023-11-22 10:25] LABS: Lactic Acid 3.7 mmol/L (0.7-2.0)
[2023-11-22 10:38] LABS: NT-proBNP 397 pg/ml; Troponin I < 0.012 ng/ml
--- NOTE | 2023-11-22 10:44 | PTCARENOTE ---
PT received from bed s/p RR, PT had been up and walking around the bed, PT became diaphoretic, SOB, and c/o chest pressure, ' feels like an elephant is sitting on my chest', Echo being preformed at bedside, PT AAOx3, able to ELLSWORTH, and make needs
known, PT had rather large BM after episode, AFib HR 96-120's, irregular rate, + pulses, trace edema, 2 L NC 100%, B/L BS are diminished, shallow, does not appear SOB, abdomen round, soft + BS, Heparin @ 1700 units/hr
[2023-11-22 10:46] LABS: INR 1.31; PT 16.2 Sec (11.4-14.6)
--- NOTE | 2023-11-22 10:57 | CON.NEURO ---
Consultation
Order
CC: ' I am better'
HPI: This is a 68-year-old man who presented to [facility] on 11/20/2023 with dyspnea, weight gain and edema. Neurology patient was requested for suspected seizure versus stroke.
According to the patient he felt dyspneic and diaphoretic before he lost consciousness. When he woke up the room was reportedly full of medical personnel. No reports of tongue injury, urinary incontinence history of seizures. According to EMR
patient had an episode of unresponsiveness with associated rigidity lasting for<1 min on 11/22/2023 around 10 AM. VS-WNL?
Mr. Sharif underwent emergent pericardiocentesis for cardiac tamponade earlier today.
Labs: [id number], corrected Na-132-133, Cr 1.5, lactic acid 3.7, normal TSH
PDMP:none
PMH: AFib, HTN, DLP, DM, CHF, BPH, GERD, obesity
SH: , nonsmoker; denied excessive ETOH use
FH: mother-CAD
All:NKDA
ROS:Constitutional: Negative. Negative for chills, fever and unexpected weight change.
HENT: Negative for ear pain, hearing loss, tinnitus and trouble swallowing.
Eyes: Negative. Negative for photophobia, pain and visual disturbance.
Respiratory: Negative for cough, choking and shortness of breath.
Cardiovascular: positive for syncope
Gastrointestinal: Negative for abdominal pain and vomiting.
Endocrine: Negative. Negative for cold intolerance.
Genitourinary: Negative for dysuria, flank pain and urgency.
Musculoskeletal: Negative for back pain, gait problem, neck pain and neck stiffness.
Skin: Negative for rash.
Allergic/Immunologic: Negative. Negative for immunocompromised state.
Neurological: Negative for dizziness, tremors, seizures, speech difficulty, numbness and headaches.
Psychiatric/Behavioral: Negative for behavioral problems, confusion and hallucinations.
General: Well developed. In no acute distress.
Cardio: Regular rate and rhythm without murmur. Extremities are without cyanosis or edema.
Neuro:
Mental Status: Alert, oriented to person, place, and date. Normal attention and recall. Good fund of knowledge. Follows complex requests across the midline. Comprehension, naming, and repetition intact. Immediate and delayed recall 3/3.
Cranial Nerves: . Pupils are equally round and reactive to light. EOMs full. Visual boo full to confrontation. No ptosis. No nystagmus. V1-V3 intact to light touch and pinprick bilaterally, symmetric. Face symmetric. Normal hearing AU.
The palate elevated well. SCMs and traps 5/5. Tongue midline. No dysarthria.
Motor: Normal bulk and tone. No pronator or arm drift. Strength 5/5 throughout. No clonus.
Reflexes: 2+ throughout the upper extremities and knees. 2/2 in AJs. Plantar responses flexor bilaterally.
Sensory: Normal pinprick, vibration and JPS.
Coordination: No dysmetria or tremor.
Gait: deferred
Assessment and Plan:
I. Syncope
II. AFib
III. Pericardial tamponade
-Telemetry monitoring
-Continue ASA/Heparin gtt
-Cardiology follow up
-Please recall Neurology consult with any additional questions or concerns.
I reviewed all radiology and labs along with past medical records pertinent to current medical problems.
Thank you for allowing us to participate in the care of this patient. Please do not hesitate to contact us with any questions or concerns.
Subjective/Objective
Subjective Data
Date of Service: November 22, 2023
Objective Data
Vital Signs
Temp Pulse Resp BP Pulse Ox
36.6 C 93 18 117/78 99
11/22/23 10:37 11/22/23 07:05 11/22/23 07:05 11/22/23 07:05 11/22/23 07:05
Lab Results
11/22/23 09:55
PT 16.2 Sec (11.4-14.6) H 11/22/23 09:55
INR 1.31 11/22/23 09:55
APTT Cancelled 11/22/23 10:28
Sodium 128 mmol/L (135-145) L 11/22/23 07:08
Potassium 4.5 mmol/L (3.5-5.1) 11/22/23 07:08
BUN 68 mg/dl (9-20) H 11/22/23 07:08
Glucose 256 mg/dl (70-99) H 11/22/23 07:08
Calcium 8.8 mg/dl (8.4-10.2) 11/22/23 07:08
Nyy-L-Abdijquronj Pept 397 pg/ml 11/22/23 09:55
Patient Allergies
No Known Allergies Allergy (Verified 07/29/16 22:41)
Modified Terry Score (MRS)
-
MRS Score:
Medications
-
Active Medications
Generic Name Dose Route Start Last Admin
Trade Name Freq PRN Reason Stop Dose Admin
Aspirin 81 mg 11/21/23 08:00 11/22/23 09:07
Aspirin 81 Mg Chewable Tablet PO 12/19/23 07:59 81 mg
DAILY BRIANNA Administration
Dextrose 12.5 grams 11/20/23 21:24
Dextrose 50% (0.5 Grams/Ml) 50 Ml Syringe IV 12/18/23 21:23
[id number] PRN
hypoglycemia
Protocol
Ezetimibe 10 mg 11/21/23 08:00 11/22/23 09:07
Ezetimibe (Zetia) 10 Mg Tablet PO 12/19/23 07:59 10 mg
DAILY BRIANNA Administration
Finasteride 5 mg 11/21/23 18:00 11/21/23 17:57
Finasteride 5 Mg Tablet PO 12/19/23 17:59 5 mg
QPM BRIANNA Administration
Glucagon 1 mg 11/20/23 21:24
Glucagon 1 Mg Vial IM 12/18/23 21:23
PRN PRN
hypoglycemia
Protocol
Heparin Sodium 8,000 units 11/21/23 15:14
Heparin 80 Units/Kg Rebolus-Do Not Discard IV 12/19/23 15:13
PRN PRN
PTT < OR = 64 seconds
Heparin Sodium 4,000 units 11/21/23 15:15 11/22/23 08:58
Heparin 40 Units/Kg Rebolus-Do Not Discard IV 12/19/23 15:14 4,000 units
PRN PRN Administration
PTT = 64.1 to 72.9 seconds
Heparin Sodium 25,000 units in 250 mls @ 0 mls/hr 11/21/23 15:00 11/22/23 08:58
Heparin [id number] Units/250 Ml IV 250 mls
PER PROTOCOL BRIANNA Administration
Protocol
Per Protocol
Insulin Glargine 10 units/ 0.1 mls @ 0 mls/hr 11/21/23 22:00 11/21/23 21:34
Device SC 12/19/23 21:59 0.1 mls
HS BRIANNA Administration
As Directed
Diltiazem HCl 125 mg in 125 mls @ 0 mls/hr 11/22/23 09:45 11/22/23 10:04
Cardizem IV 125 mls
PER PROTOCOL BRIANNA Administration
Protocol
Per Protocol
Insulin Aspart 0 units 11/21/23 11:30 11/22/23 09:07
Insulin Aspart Low Resistance 300 Units/3 Ml Pen.Injctr SC 12/19/23 11:29 3 units
ACHS BRIANNA Administration
Protocol
Insulin Aspart 6 units 11/21/23 16:30 11/22/23 09:07
Insulin Aspart (100 Units/Ml) 3 Ml Flexpen SC 12/19/23 16:29 6 units
AC BRIANNA Administration
Pantoprazole Sodium 40 mg 11/21/23 18:00 11/21/23 17:57
Pantoprazole 40 Mg Delayed Release Tablet PO 12/19/23 17:59 40 mg
QPM BRIANNA Administration
Sodium Chloride 0 flush 11/20/23 22:00
Sodium Chloride 0.9% (Flush) Syringe IV 12/18/23 21:59
PER PROTOCOL BRIANNA
Tamsulosin HCl 0.4 mg 11/21/23 18:00 11/21/23 17:57
Tamsulosin 0.4 Mg Capsule PO 12/19/23 17:59 0.4 mg
QPM BRIANNA Administration
Home Medications
Medication Instructions Recorded
ezetimibe 10 mg tablet 10 mg PO DAILY High Cholesterol 07/29/16
metoprolol succinate 50 mg 50 mg PO DAILY Blood Pressure 07/29/16
tablet,extended release 24 hr
omeprazole 40 mg capsule,delayed 40 mg PO QPM Gastrointestinal Issue 07/29/16
release
glyburide 5 mg-metformin 500 mg 1 tab PO BID ##0 08/01/16
tablet
amlodipine 5 mg-benazepril 20 mg 1 cap PO DAILY Blood Pressure 11/20/23
capsule
azithromycin 250 mg tablet 0 mg PO .COMPLEX Infection 11/20/23
dulaglutide 0.75 mg/0.5 mL 0.75 mg SC HARLEY Diabetes 11/20/23
subcutaneous pen injector
(Trulicity)
finasteride 5 mg tablet 5 mg PO QPM Urinary Issue 11/20/23
pioglitazone 30 mg tablet (Actos) 30 mg PO DAILY Diabetes 11/20/23
tamsulosin 0.4 mg capsule (Flomax) 0.4 mg PO QPM Urinary Issue 11/20/23
Vital Signs and Labs
-
Vital Signs and Labs:
Vital Signs
Temp Pulse Resp BP Pulse Ox
36.6 C 93 18 117/78 99
11/22/23 10:37 11/22/23 07:05 11/22/23 07:05 11/22/23 07:05 11/22/23 07:05
Lab Results
11/22/23 09:55
PT 16.2 Sec (11.4-14.6) H 11/22/23 09:55
INR 1.31 11/22/23 09:55
APTT Cancelled 11/22/23 10:28
Sodium 128 mmol/L (135-145) L 11/22/23 07:08
Potassium 4.5 mmol/L (3.5-5.1) 11/22/23 07:08
BUN 68 mg/dl (9-20) H 11/22/23 07:08
Glucose 256 mg/dl (70-99) H 11/22/23 07:08
Calcium 8.8 mg/dl (8.4-10.2) 11/22/23 07:08
Dez-Z-Ijzabmidias Pept 397 pg/ml 11/22/23 09:55
Home Medications
-
Home Medications
ezetimibe 10 mg tablet 10 mg PO DAILY High Cholesterol 07/29/16
metoprolol succinate 50 mg tablet,extended release 24 hr 50 mg PO DAILY Blood Pressure 07/29/16
omeprazole 40 mg capsule,delayed release 40 mg PO QPM Gastrointestinal Issue 07/29/16
glyburide 5 mg-metformin 500 mg tablet 1 tab PO BID ##0 08/01/16
amlodipine 5 mg-benazepril 20 mg capsule 1 cap PO DAILY Blood Pressure 11/20/23
azithromycin 250 mg tablet 0 mg PO .COMPLEX Infection 11/20/23
dulaglutide 0.75 mg/0.5 mL subcutaneous pen injector (Trulicity) 0.75 mg SC HARLEY Diabetes 11/20/23
finasteride 5 mg tablet 5 mg PO QPM Urinary Issue 11/20/23
pioglitazone 30 mg tablet (Actos) 30 mg PO DAILY Diabetes 11/20/23
tamsulosin 0.4 mg capsule (Flomax) 0.4 mg PO QPM Urinary Issue 11/20/23
Medications
-
Medications:
Generic Name Dose Route Start Last Admin
Trade Name Freq PRN Reason Stop Dose Admin
Aspirin 81 mg 11/21/23 08:00 11/22/23 09:07
Aspirin 81 Mg Chewable Tablet PO 12/19/23 07:59 81 mg
DAILY BRIANNA Administration
Dextrose 12.5 grams 11/20/23 21:24
Dextrose 50% (0.5 Grams/Ml) 50 Ml Syringe IV 12/18/23 21:23
[id number] PRN
hypoglycemia
Protocol
Ezetimibe 10 mg 11/21/23 08:00 11/22/23 09:07
Ezetimibe (Zetia) 10 Mg Tablet PO 12/19/23 07:59 10 mg
DAILY BRIANNA Administration
Finasteride 5 mg 11/21/23 18:00 11/21/23 17:57
Finasteride 5 Mg Tablet PO 12/19/23 17:59 5 mg
QPM BRIANNA Administration
Glucagon 1 mg 11/20/23 21:24
Glucagon 1 Mg Vial IM 12/18/23 21:23
PRN PRN
hypoglycemia
Protocol
Heparin Sodium 8,000 units 11/21/23 15:14
Heparin 80 Units/Kg Rebolus-Do Not Discard IV 12/19/23 15:13
PRN PRN
PTT < OR = 64 seconds
Heparin Sodium 4,000 units 11/21/23 15:15 11/22/23 08:58
Heparin 40 Units/Kg Rebolus-Do Not Discard IV 12/19/23 15:14 4,000 units
PRN PRN Administration
PTT = 64.1 to 72.9 seconds
Heparin Sodium 25,000 units in 250 mls @ 0 mls/hr 11/21/23 15:00 11/22/23 08:58
Heparin 52685 Units/250 Ml IV 250 mls
PER PROTOCOL BRIANNA Administration
Protocol
Per Protocol
Insulin Glargine 10 units/ 0.1 mls @ 0 mls/hr 11/21/23 22:00 11/21/23 21:34
Device SC 12/19/23 21:59 0.1 mls
HS BRIANNA Administration
As Directed
Diltiazem HCl 125 mg in 125 mls @ 0 mls/hr 11/22/23 09:45 11/22/23 10:04
Cardizem IV 125 mls
PER PROTOCOL BRIANNA Administration
Protocol
Per Protocol
Insulin Aspart 0 units 11/21/23 11:30 11/22/23 09:07
Insulin Aspart Low Resistance 300 Units/3 Ml Pen.Injctr SC 12/19/23 11:29 3 units
ACHS BRIANNA Administration
Protocol
Insulin Aspart 6 units 11/21/23 16:30 11/22/23 09:07
Insulin Aspart (100 Units/Ml) 3 Ml Flexpen SC 12/19/23 16:29 6 units
AC BRIANNA Administration
Pantoprazole Sodium 40 mg 11/21/23 18:00 11/21/23 17:57
Pantoprazole 40 Mg Delayed Release Tablet PO 12/19/23 17:59 40 mg
QPM BRIANNA Administration
Sodium Chloride 0 flush 11/20/23 22:00
Sodium Chloride 0.9% (Flush) Syringe IV 12/18/23 21:59
PER PROTOCOL BRIANNA
Tamsulosin HCl 0.4 mg 11/21/23 18:00 11/21/23 17:57
Tamsulosin 0.4 Mg Capsule PO 12/19/23 17:59 0.4 mg
QPM BRIANNA Administration
[2023-11-22 10:59] LABS: ALT (SGPT) 85 U/L (0-50); AST (SGOT) 90 U/L (17-59); Albumin 3.8 g/dl (3.5-5.0); Alkaline Phosphatase 105 U/L (38-126); Blood Urea Nitrogen 60 mg/dl (9-20); Calcium 8.1 mg/dl (8.4-10.2); Carbon Dioxide 12 mmol/L (22-30); Chloride 104 mmol/L (98-107); Estimated Creatinine Clearance 59 ml/min; Glucose 233 mg/dl (70-99); Magnesium 2.5 mg/dl (1.6-2.3); Phosphorus 5.3 mg/dl (2.5-4.5); Potassium 4.2 mmol/L (3.5-5.1); Sodium 129 mmol/L (135-145); Total Bilirubin 1.5 mg/dl (0.2-1.3); Total Protein 5.8 g/dl (6.3-8.2); eGFR 50.71
[2023-11-22 11:10] LABS: APTT 171.6 Sec (23.4-35.0)
--- NOTE | 2023-11-22 11:33 | RR ---
pt was overheard from hallway requesting to see RN. pt transport was present as he was scheduled to go for ECHO. upon arrival to room, patient was sitting in chair, reporting dizziness, SOB, chest discomfort. pt reported that he walked from the bed
to the chair as symptoms persisted at that time. Tele alarming with patient in A-fib, HR sustained between 140-170. Dr. Groves on the floor and was notified. Saw patient at bedside. EKG obtained. Dr. Howard from cardiology on floor and made aware
of situation. 5mg IV Lopressor administered as ordered. Approximately 5 mins after administration, pt reported to feel worse, increase in dizziness, chest pressure, reported feeling tired and let out a big yawn and exhibited signs of respiratory
distress, posturing and had a period of unresponsiveness. Code 9 initially called but then changed to a rapid response when patient became responsive. Patient was transferred to ICU per Dr. Mehta due to continued symptoms and further monitoring.
A Rapid Response was called on this patient, please see Rapid Response form.
[2023-11-22 11:42] LABS: Glucose - Point of Care 271 mg/dl (70-99)
--- NOTE | 2023-11-22 12:15 | PTCARENOTE ---
Assessment remains unchanged < PT drowsy but arousable, incontinent of large amount of theodore urine, PT cleaned and repositioned for comfort, at bedside
--- NOTE | 2023-11-22 12:23 | W.PN.UPDATE ---
Update Note
Progress Note Update
Reviewed bedside echo showing evidence of pericardial tamponade with respiratory variation and moderate to severe circumferential pericardial effusion. EF is preserved.
Pt receiving 250cc IVF bolus over 1-2 hrs to help with hypotension. Hold IV Cardizem due to hypotension and HR improved. Hold IV Heparin in anticipation of procedure.
Discussed pericardiocentesis with pt and at bedside and with interventional cardiology.
Discussed with nursing.
--- NOTE | 2023-11-22 13:34 | PTCARENOTE ---
Heparin placed on hold for pericardiocentesis, Cardizem also placed on hold, concrete mixing plant laborer received verbal report and came to bedside to take PT to chemistry laboratory technician, shown to waiting room
[2023-11-22] MEDS: NOVOLOG FLEXPEN SC (14:57)
[2023-11-22] MEDS: NOVOLOG FLEXPEN-LOW RESISTANCE SC (14:57)
--- NOTE | 2023-11-22 14:58 | W.PN.UPDATE ---
Update Note
Progress Note Update
Patient seen after pericardiocentesis - pericardial drain in place attached to negative pressure bulb. Heart rate in the 80s, he feels much better, denies chest pain or shortness breath currently - just some chest pressure on left side of chest.
Will hold off on VQ scan for now given his tachycardia and chest discomfort was likely related to pericardial effusion complicated by tamponade physiology. Empirically continue heparin gtt but I will likely DC heparin tomorrow and transition to SQ
ppx dosing if pt remains stable and on room air with sats >94% and without tachycardia. at bedside - I updated her and answered all her and the patient's questions.
[2023-11-22 15:10] LABS: Lactic Acid 2.8 mmol/L (0.7-2.0)
[2023-11-22 15:13] LABS: Creatine Phosphokinase 38 U/L (55-170); Magnesium 1.4 mg/dl (1.6-2.3)
[2023-11-22 15:14] LABS: Body Fluid Glucose 193 mg/dl; Body Fluid Protein 5.5 g/dl
[2023-11-22 15:14] LABS: Blood Urea Nitrogen 65 mg/dl (9-20); Carbon Dioxide 18 mmol/L (22-30); Estimated Creatinine Clearance 55 ml/min; Glucose 222 mg/dl (70-99); eGFR 46.93
[2023-11-22 15:21] LABS: Troponin I < 0.012 ng/ml
[2023-11-22 15:27] LABS: Body Fluid Hematocrit 8.6 %
[2023-11-22 15:32] LABS: Chloride 99 mmol/L (98-107); Potassium 4.1 mmol/L (3.5-5.1); Sodium 130 mmol/L (135-145)
[2023-11-22 15:36] LABS: Body Fluid LDH 2538 U/L
--- NOTE | 2023-11-22 15:47 | ITS.CL.CATH ---
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
Cardiac Catheterization
Procedure Report:
RIGHT HEART CATHETERIZATION AND PERICARDIOCENTESIS REPORT
Date: November 22, 2023
Referring: Vick Howard
Indications: Concern for tamponade physiology on echocardiogram and cardiogenic shock
Procedure: Pericardiocentesis via apical approach under echocardiographic guidance
After obtaining consent, the patient was brought to the cardiac forestry farm laborer and placed in a recumbent position. Echocardiogram was used to ascertain the best approach vector. An apical approach was selected. The site was anesthetized with 1%
lidocaine. Under ultrasound guidance, a micropuncture needle was advanced into the pericardial space under negative pressure. After obtaining flashback of pericardial fluid, the micropuncture wire was advanced into the pericardial space and the
needle was removed. The micropuncture sheath was advanced over the wire and the wire and dilator were removed. Agitated saline was injected through the micropuncture sheath confirming its presence in the pericardial space on echocardiography. A
0.035 inch J-wire was advanced through the micropuncture sheath and into the pericardial space. The micropuncture sheath was removed and a 6 Ghanaian sheath was advanced over the 0.035 inch wire. A pigtail catheter was advanced through the sheath over
the J-wire and placed in the pericardial space. The J-wire was removed. The pericardial pressure was measured. A sufficient sample of pericardial fluid was removed and sent for laboratory testing (hemoglobin, hematocrit, white blood cell count, LDH,
albumin, total protein, cytology and culture). The pigtail catheter was then connected to a Vacutainer and the pericardial space was evacuated. Serial echocardiography confirmed reduction in the pericardial effusion from severe to trace. All
evidence of tamponade was removed. The 6 Ghanaian sheath was sutured into place. The pigtail catheter was likewise sutured into place then curled around the sheath and covered by a sterile Tegaderm. Repeat pericardial pressure was measured,
confirming significant reduction. The pigtail catheter was then connected to a PENNY drain to suction. The patient reported significant improvement in their shortness of breath.
Hemodynamics (mmHg): Right heart catheterization was performed via right common femoral venous access through a 6 Ghanaian sheath. Access was obtained under ultrasound guidance using a micropuncture kit.
PRE-PERICARDIOCENTESIS:
RA (m) : 35
RV (s/d,m) : 57/32, 36--pressure waveform appeared atypical despite zeroing the transducer multiple times and flushing catheter adequately.
PA (s/d, m) : 42/37, 39
PCWP (m) : 37
PA saturation: 37.9% on room air
AO saturation: 99.0% on room air
RA saturation: 36.0% on room air
Cardiac Output : 1.8 L/min
Cardiac Index : 1.2 L/min/m-2
POST-PERICARDIOCENTESIS:
RA (m) : 25
PA (s/d, m) : 39/26, 32
PCWP (m) : 27
PA saturation: 71.3% on room air (recheck was 71% on room air)
AO saturation: 99.0% on room air
Cardiac Output : 3.9 L/min
Cardiac Index : 2.5 L/min/m-2
Procedure Details:
Approach: Transapical
Sheath/Drain size (Fr) 6
Pericardial Volume (mL): 275 cc
Effusion type: Serosanguineous
Non-effusion blood loss (mL): Minimal
Pericardial pressures:
Pre drainage (mmHg): 28
Post drainage (mmHg): 17
RADIATION SUMMARY: Fluoro Time (min): 3.8, Dose (mGy): 96.4, DAP (Gy.cm2) : 12.4
SEDATION: 55 minutes of procedural sedation was utilized.� An independent medical sales was present to assist with and help manage the patient's level of consciousness and physiologic status.
Conclusion:
1. Successful pericardiocentesis via trans-apical approach under echocardiographic guidance with 275 cc of serosanguineous pericardial fluid output. Pericardial drain secured in place via a 6 Ghanaian sheath.
2. Pericardial fluid has been sent for laboratory analysis.
3. Invasive hemodynamics consistent with cardiogenic shock and low flow state secondary to cardiac tamponade pre-pericardiocentesis. Post pericardiocentesis, right and left-sided filling pressures continue to remain high with significant
improvement in mixed venous saturation and normalization of cardiac output.
Recommendations:
1. Pain control as needed.
2. Plan to discontinue drain once pericardial output less than 25 cc over 24 hours or once the drain has been in for 5 or more days given increased risk for infection.
3. Plan to resume heparin drip this evening.
Copy to: Vick Howard
Perla Tsai MD, FACC, [facility]
[2023-11-22 16:24] LABS: Body Fluid Lymphocytes 51 %
[2023-11-22 16:25] LABS: Body Fluid Macrophages 14 %; Body Fluid Mesothelials 6 %; Body Fluid WBC 330 /CUMM
--- NOTE | 2023-11-22 16:44 | W.PN.UPDATE ---
Update Note
Progress Note Update
Pt reevaluated and bp is stable. HR stable in sinus.
IV heparin being resumed around 6 pm.
IV Cardizem ordered was d/c'd.
Pericardial Drain in place.
He was appreciative of the procedure and feels much improved.
Reviewed with nursing.
[2023-11-22 17:20] LABS: Body Fluid Granulocytes 28 %; Body Fluid Other Cells 1 %
[2023-11-22 17:21] LABS: Glucose - Point of Care 210 mg/dl (70-99)
[2023-11-22 17:21] LABS: Body Fluid Second Tech DB
[2023-11-22] MEDS: FLOMAX 0.400000000000000022 MG PO (17:41)
[2023-11-22] MEDS: NOVOLOG FLEXPEN-MODERATE RESISTANCE 3 UNITS SC (17:41)
[2023-11-22] MEDS: PROTONIX 40 MG PO (17:41)
[2023-11-22] MEDS: PROSCAR 5 MG PO (17:42)
[2023-11-22 17:57] LABS: APTT 33.6 Sec (23.4-35.0)
--- NOTE | 2023-11-22 18:00 | EEGC.RPT ---
Continuous EEG Report
Recording
Start Date of Data Reviewed: 11/22/23
Done with Video Recording: Yes
Electrocardiogram: Unremarkable
Report
TECHNICAL REMARKS:��This is a technically satisfactory eighteen channel record employing 21 disc electrodes applied according to a measured international 10-20 electrode placement system.��There were no significant technical difficulties.��The study
was done on a [employer] System.
STUDY DURATION: 31 min 1 sec
�
CLINICAL HISTORY: this is a 68-year-old man who was unresponsiveness. This study was requested to look for epileptiform abnormalities
�
MEDICATIONS: no AED
REPORT: �At the onset of the EEG, the patient is awake. The background activity consists of 9-9.5- Hz, persistent, posteriorly dominant, moderate amplitude, symmetric and rhythmic activity that is reactive to eye-opening. Anteriorly, it consists of
a mixture of low voltage indeterminate activity and 20-25 Hz, persistent, low amplitude, symmetric and rhythmic activity.� Stepwise intermittent photic stimulation (1-20 Hz) does not induce any abnormalities. Hyperventilation was not performed.
Drowsiness is characterized by low amplitude mixed frequency activity, decreased eye blinking, and muscle artifact.
�
�IMPRESSION: �This is a normal awake and drowsy EEG. There is no evidence of focal slowing or epileptiform activity.� A normal EEG does not rule out epilepsy. If the clinical picture warrants, a sleep-deprived awake and sleep record may be helpful.
[2023-11-22 19:08] LABS: Hepatitis C Antibody Negative (Negative)
[2023-11-22 21:28] LABS: Glucose - Point of Care 215 mg/dl (70-99)
[2023-11-22] MEDS: LANTUS 0.149999999999999994 UNITS SC (22:01)
[2023-11-22 22:31] LABS: Lactic Acid 1.7 mmol/L (0.7-2.0)
[2023-11-22 22:46] LABS: Troponin I 0.045 ng/ml
--- NOTE | 2023-11-22 23:53 | PTCARENOTE ---
Pt received at 19:00, son at bedside. Pt AOx3, pleasant. SR, HR 80s. Palpable pulses. Pericardial drain in place, dressing CDI, approx 100ml output in bulb. States improvement in chest pain, slight pressure continues in L chest with
movement/coughing. RA, breath sounds clear/diminished. +BS, no BM. Voids yellow/theodore urine. Heparin gtt continues. Troponin = 0.045, repeat troponin placed for morning labs.
[2023-11-23] VITALS (21 sets, daily range): BP systolic 102–149; BP diastolic 68–92; BMI 29.3
[2023-11-23 00:23] LABS: APTT 41.6 Sec (23.4-35.0)
[2023-11-23 05:01] LABS: Hematocrit 37.7 % (39.0-52.0); Hemoglobin 13.2 g/dL (13.0-18.0); Mean Corpuscular Hgb 29.7 pg (27.0-31.0); Mean Corpuscular Volume 84.7 fL (80.0-94.0); Mean Platelet Volume 9.8 fL (7.4-10.4); Platelet Count 362 10^3/uL (130-400); Red Blood Cell Count 4.45 10^6/uL (4.70-6.10); Red Cell Dist. Width 13.2 % (11.5-14.5); White Blood Cell Count 10.3 10^3/uL (4.8-10.8)
[2023-11-23 05:09] LABS: Lactic Acid 1.7 mmol/L (0.7-2.0)
[2023-11-23 05:27] LABS: Troponin I 0.034 ng/ml
[2023-11-23 05:53] LABS: Blood Urea Nitrogen 58 mg/dl (9-20); Calcium 8.7 mg/dl (8.4-10.2); Carbon Dioxide 24 mmol/L (22-30); Chloride 100 mmol/L (98-107); Estimated Creatinine Clearance 66 ml/min; Glucose 120 mg/dl (70-99); Potassium 4.4 mmol/L (3.5-5.1); Sodium 135 mmol/L (135-145); eGFR > 60.00
[2023-11-23 06:06] LABS: Magnesium 2.5 mg/dl (1.6-2.3)
[2023-11-23] MEDS: ZETIA 10 MG PO (07:33)
[2023-11-23] MEDS: LOW STRENGTH ASPIRIN 81 MG PO (07:33)
[2023-11-23 07:45] LABS: APTT 66.8 Sec (23.4-35.0)
[2023-11-23] MEDS: NOVOLOG FLEXPEN-MODERATE RESISTANCE SC (07:45)
[2023-11-23 07:56] LABS: Glucose - Point of Care 116 mg/dl (70-99)
--- NOTE | 2023-11-23 08:00 | PTCARENOTE ---
PT received from bed AAOX3, pleasant and cooperative, NSR + pulses, right heart cath site (right groin), dressing C/D/I, no swelling or bruising noted, left chest wall pericardial drain in place, dressing C/D/I, drain has some bloody drainage noted,
PT does c/o soreness at the site, B/L BS diminished, shallow but CTA, abdomen round, + BS, voids independently in urinal, DR Joseph at bedside, placed heparin on hold, Ok to get OOB
--- NOTE | 2023-11-23 08:35 | PTCARENOTE ---
Vital signs prior to 0700 can not be verified by this nurse
[2023-11-23] MEDS: NOVOLOG FLEXPEN SC ×2 (08:43→12:54)
--- NOTE | 2023-11-23 09:02 | W.PN.INTV ---
Today's Communication / Plan
Recommendations
Colchicine being started
Pain control for left-sided chest discomfort where pericardial drain is --> lidocaine ordered
Drain to be removed tentatively tomorrow with repeat TTE ~24 hrs later
Patient stable for downgrade out of ICU to IVU. Terminal System Operator/pulmonary service will sign off. Patient has thick neck and borderline obesity & is at risk for OSAS --> this can be reviewed with Dr. Hull as an outpatient. Please reconsult if there
are any additional questions/concerns, or if respiratory issues develop.
Assessment
-
Patient is a 68 year old M with PMH significant for HTN and DM-II presents to ED 11/20/23 complaining of generalized fatigue, WESLEY, weight gain and LE edema, developed acute on chronic SOB symptoms this AM with HR max 170s in AFib with RVR. Had
acute episode of unresponsiveness with noted rigidity but never lost pulses. Code 9 called amended to CHIEF ORDER DISPATCHER. Transfer initiated to ICU, we are consulted for eval. patient found to have pericardial effusion with tamponade physiology and underwent
pericardial drain. He continues to be managed in the ICU and critical care services on board for additional management/recommendations.
Acute pericardial effusion with tamponade physiology c/b cardiogenic shock s/p pericardiocentesis with drain placement - DDx of bloody fluid include trauma (fall recently ~1 week ago) vs URI (recent cold) with pericarditis
Acute onset unresponsiveness, never lost pulses/no arrest, resolved spontaneously
Afib with RVR -currently in NSR s/p pericardiocentesis with drain placement
WESLEY - due to above and his dyspnea has now resolved
LE edema - due to cardiogenic shock from pericardial effusion
Trace pleural effusion due to cardiogenic shock
Malaise/lightheadedness
ARMANDO - improving
Hyponatremia
Metabolic acidosis - resolved
Transaminitis
Hyperglycemia - resolved
Conditions CARDIOLOGY RN
HTN
Hypercholesterolemia
NIDDM
Bilateral hernia repair
[place] teeth
Obesity BMI 30.3
Plan
Patient has markedly improved since his pericardiocentesis with drain placement; remains on room air and is HDN stable in NSR
No longer in A-fib and he continues to be in NSR with rate controlled and dyspnea has also resolved --> no need to workup for PE as there is low suspicion for acute PE
Follow-up pericardial fluid studies including bacterial culture, fungus and AFB; follow up pleural fluid cytology as well
Repeat TTE for pericardial surveillance as per cardiology - plan to remove drain tomorrow AM and then obtain echo ~24 hrs later
Colchicine being started for suspected pericarditis as cause of his pericardial effusion
Replete K>4, Mg>2, PO4>3
Maintain MAP>65
He is on room air --> keep SpO2 >90-94%
Neurology's been consulted given his episode of unresponsiveness during the CHIEF ORDER DISPATCHER yesterday - EEG was obtained yesterday showing normal awake/drowsy EEG with no evidence of epileptiform activity or focal slowing.
Maintain euglycemia with goal BG 140-180mg/dL
Trend LFTs
Check coxsackie Ab
DVT ppx --> I will start HSQ and eventually pt can start systemic AC given he had A-fib - will defer this decision to cardiology
Patient stable for downgrade out of ICU to IVU. Terminal System Operator/pulmonary service will sign off. Patient given his thick neck and borderline obesity is at risk for OSAS, and this can be reviewed with Dr. Hull as an outpatient. Please reconsult if
there are any additional questions/concerns, or if respiratory issues develop. Thank you for allowing us to be involved in the care of this patient.
Diagnostic Data
Duplex 11/21/23: No evidence of deep venous thrombosis bilaterally.
CXR 11/20/23: IMPRESSION: Suspected tiny left pleural effusion.
CXR 11-22-2023: No acute disease of the chest
CT Pelvis 2015: IMPRESSION:
1. Skin thickening and subcutaneous inflammatory change within the left inguinal crease consistent with a cellulitis. No associated organized fluid collections.
2. Discogenic disease at L4-5.
Subjective Dataa
Subjective Data
Date of Service:
Date of Service: November 23, 2023
Chief Complaint: Terminal System Operator Follow Up
Subjective:
Seen this AM. No overnight events. Drainage from pericardial drain is 100cc since arrival to ICU yesterday (275cc additionally removed in cath laboratory technician yesterday). HR 85 and he is on room air, denies SOB. Has left sided chest disocomfort where drain
is located. Currently in NSR since yesterday after returning from cath laboratory technician.
Review of Systems
General: Other (12 point ROS performed and is negative unless mentioned above.)
Objective Data
Data Reviewed
Vital Signs / I&O / Oxygen:
Vital Signs
Temp Pulse Resp BP Pulse Ox
97.6 F 82 16 140/87 97
11/23/23 08:15 11/23/23 08:15 11/23/23 08:15 11/23/23 08:00 11/23/23 01:46
Intake and Output
11/22/23 11/23/23 11/24/23
06:59 06:59 06:59
Intake Total 720 / 720 1070 / 1082 25 /
Output Total 225 / 225 2450 / 2450 350 / 350
Balance 495 / 495 -1380 / -1368 -325 / -325
SaO2 97
Physical Exam
General: Comfortable and Good Appetite
HEENT: Normocephalic, Anicteric and Moist Mucous Membranes
Cardiovascular: S1-S2
Respiratory: Clear, Wheeze (Negative), Crackles (Negative), Rhonchi (Negative) and Non-Labored Respirations
GI: Soft, Non Distended and Non Tender
Neurology: Awake and Alert
Skin: Warm, Dry and Other (pericardial drain seen coursing along left side of chest)
Labs/Micro/Reports
Lab Data
11/23/23 04:43
11/23/23 04:43
Laboratory Results
11/22/23 11/22/23 11/22/23
09:55 10:28 15:00
PT 16.2 H
INR 1.31
APTT 171.6 H* Cancelled Cancelled
11/22/23 11/23/23 11/23/23
17:33 00:06 07:26
PT
INR
APTT 33.6 41.6 H 66.8 H
Microbiology
11/22/23 11:41 Pericardial Fluid Body Fluid Culture - Preliminary
No Growth After 18-24 Hours
11/22/23 11:41 Pericardial Fluid Gram Stain - Preliminary
11/21/23 19:07 Nose MRSA Screen - Final
No Methicillin Resistant Staphylococcus aureus isolated.
11/22/23 11:41 Pericardial Fluid Fungal Culture - Preliminary
Culture in progress.
Positive cultures are reported as soon as detected.
Final report to follow in four to five weeks.
[2023-11-23 10:24] LABS: ALT (SGPT) 336 U/L (0-50); AST (SGOT) 300 U/L (17-59); Albumin 3.2 g/dl (3.5-5.0); Alkaline Phosphatase 118 U/L (38-126); Direct Bilirubin 0.6 mg/dl (0.0-0.4); Total Bilirubin 1.4 mg/dl (0.2-1.3); Total Protein 5.5 g/dl (6.3-8.2)
[2023-11-23] MEDS: COLCHICINE 0.599999999999999978 MG PO ×2 (11:22→20:45)
--- NOTE | 2023-11-23 11:44 | PTCARENOTE ---
plan was to get PT OOB, PT did ambulate with tech to bathroom, voided without issue, PT felt slightly winded and exhausted after ambulating to bathroom, PT asked to go back to bed, PT is sitting up and sits on the side of the bed for meals,
explained in detail pericarditis and treatments asked answered all questions and concerns, printed a informational package for PT, call amador in reach, bed in lowest position
--- NOTE | 2023-11-23 11:58 | W.PN.CARDCBS ---
Addendum entered and electronically signed by Abhinav Joseph MD 11/23/23 14:11:
I saw and examined the patient.
The STEEL INSPECTOR or PA's note was reviewed and I agree with the note.
Comment: General: Well developed, well nourished in NAD.
Neck: Supple, no JVD, HJR, carotids +2 B/L, no bruits bilaterally.
Heart: Non displaced PMI, RRR, no murmurs, No S3, S4, no rubs.
Lungs: Scattered rhonchi
Extremities: No clubbing, cyanosis or edema bilaterally.
Neuro: Grossly nonfocal, awake, alert and oriented x3.
Over 100 mL of pericardial drainage which is bloody. Will discontinue IV heparin. He has had no recurrent atrial fibrillation and perhaps may stay in sinus rhythm with treatment of possible pericarditis as the cause of A-fib. Hopefully will be
able to pull drain on 11/24 a.m. He will need a repeat echocardiogram on 11/25 after pericardial drain has been removed for 24 hours. Will start colchicine and will do once daily with abnormal lft's. Discussed with nursing and patient in detail.
Might consider eventual anticoagulation as outpt.
Original Note:
Today's Communication / Plan
-
Heparin gtt stopped, will not add OAC. Consider starting OAC in the future or pending recurrence of Afib
Consider AAD
Added colchicine, reducing dose in AM based on labs
Impression / Plan
-
PCP: Dr. Olya Suarez
Cardiology: None prior to admission, seen initially by Dr. Tran
Impression:
Presented with chest discomfort, dyspnea on exertion, weight gain
Newly diagnosed paroxysmal Afib with RVR 11/22/23
Rapid response for unresponsiveness and hypotension 11/22/23
Pericardial effusion with tamponade
s/p pericardiocentesis for 275 ml sanguinous fluid 11/22/23
Cardiogenic shock, CI 1.3 pre-pericardiocentesis and improved to 2.3 post-pericardiocentesis 11/22/23
Hx Hypertension
Hypercholesterolemia
Type 2 diabetes
ARMANDO on mild CKD
Elevated Troponin
Echo 11/22/23: EF 70-75%, RV small and under-filled and in some views appears to be compressed secondary to the pericardial effusion, respiratory variation across the mitral valve suggestive of tamponade physiology, moderate pericardial effusion
mostly over the RV with evidence of hemodynamic compromise and tamponade physiology
Plan:
-Patient had a rapid response 11/22/23, he was in rapid Afib and given Lopressor IV then had unresponsiveness for a few seconds and then awoke, but was persistently hypotensive. Patient had an urgent bedside echo and as noted above had evidence of
pericardial effusion with tamponade physiology. Patient had urgent pericardiocentesis for 275 ml sanguinous fluid, drain left in place.
-Patient was on a Heparin gtt at the time of pericardial effusion, this was for possible PE.
-Patient with new Afib at the time of rapid response 11/22/23. Will not anticoagulate at this time due to sanguinous pericardial effusion. Patient spontaneously converted to SR and remains in SR on tele 11/23/23.
-Consider starting AAD, possibly amiodarone, to maintain SR.
-Started colchicine 0.6 mg BID on 11/23/23. Reviewed with pharmacist and will reduce to 0.6 mg daily on 11/24/23. If amiodarone is eventually started then will need to decrease dose of colchicine further
-Repeat LFTs ordered by me are increasing, will check again in AM and suspect due to cardiogenic shock prior to pericardiocentesis.
-Troponin peaked at 0.045 and likely due to cardiogenic shock at time of pericardial tamponade.
HPI: 68-year-old man who is developed generalized fatigue, WESLEY, edema and weight gain over the course of several days.� His weight is up about 12 pounds.� He is also had some left-sided chest climbing stairs yesterday.� His son says he has not been
well since he fell striking the left side of his body about a month ago.� He has lower extremity edema left greater than right.� His dyspnea was notable about a week ago, and also with bending over.� He is only had 1 episode of chest discomfort.� No
history of phlebitis.
Progress Note - Solar Sales Energy Advisor
Subjective
Date of Service: November 23, 2023
Overall feeling better than yesterday
Objective
Labs:
11/23/23 04:43
11/23/23 04:43
Labs
Hgb 13.2 g/dL (13.0-18.0) 11/23/23 04:43
Hct 37.7 % (39.0-52.0) L 11/23/23 04:43
Plt Count 362 10^3/uL (130-400) D 11/23/23 04:43
PT 16.2 Sec (11.4-14.6) H 11/22/23 09:55
INR 1.31 11/22/23 09:55
APTT 66.8 Sec (23.4-35.0) H 11/23/23 07:26
Sodium 135 mmol/L (135-145) 11/23/23 04:43
Potassium 4.4 mmol/L (3.5-5.1) 11/23/23 04:43
BUN 58 mg/dl (9-20) H 11/23/23 04:43
Creatinine 1.2 mg/dL (0.7-1.3) 11/23/23 04:43
Glucose 120 mg/dl (70-99) H 11/23/23 04:43
Troponins
11/20/23 11/20/23 11/21/23
16:31 21:42 00:19
Troponin I < 0.012 < 0.012 < 0.012
11/21/23 11/22/23 11/22/23
05:36 09:55 14:46
Troponin I < 0.012 < 0.012 < 0.012
11/22/23 11/23/23 11/23/23
22:14 04:43 06:00
Troponin I 0.045 H* D 0.034 Cancelled
11/23/23 11/23/23 11/23/23
09:45 15:45 21:45
Troponin I Cancelled Cancelled Cancelled
Vital Signs and I&O:
Vital Signs
Temp Pulse Resp BP Pulse Ox
97.6 F 82 16 140/87 97
11/23/23 08:15 11/23/23 08:15 11/23/23 08:15 11/23/23 08:00 11/23/23 01:46
Vital Signs
Temp Pulse Resp BP Pulse Ox
97.6 F 82 16 140/87 97
11/23/23 08:15 11/23/23 08:15 11/23/23 08:15 11/23/23 08:00 11/23/23 01:46
Intake & Output
11/21/23 11/22/23 11/23/23 11/24/23
06:59 06:59 06:59 06:59
Intake Total 720 / 720 1070 / 1082
Output Total 225 / 225 2450 / 2450 350 / 350
Balance 495 / 495 -1380 / -1368 -325 / -325
Physical Exam
Physical Exam
General: AAOX3
HEENT: EOMI
Heart: Reg
Lungs: CTA b/l
Abd: +BS
Ext: No edema B/L
Neuro: nonfocal
[2023-11-23 12:06] LABS: Glucose - Point of Care 156 mg/dl (70-99)
[2023-11-23] MEDS: NOVOLOG FLEXPEN-MODERATE RESISTANCE 1 UNITS SC (12:54)
--- NOTE | 2023-11-23 14:20 | W.PN.HOSP.TC ---
Today's Communication/Plan
-
He is doing better
No anticoagulation due to bloody pericardial effusion
Please see below
Assessment / Plan
Assessment / Plan
Physical Exam
Gen-AAOx3, NAD
HEENT-NC, AT, anicteric, clear oral mm
Neck-supple
CV-reg, no M, +S1/S2
Lungs-Rhonchi
Abd-soft, NT, ND
Ext-no edema
Musculoskeletal-no cyanosis
Skin-warm and dry
Neuro-grossly non-focal
Psych-calm, cooperative
Assessment/Plan
Chest pressure
Cardiac Tamponade
Possible Pericarditis
Dyspnea on Exertion
Lower Extremity Edema
Lightheadedness, worsening chest tightness and rapid heart heart rate on November 22, 2023 Morning
Unresponsiveness (vagal vs TIA vs PE vs cardiac tamponade) - RESOLVED SPONTANEOUSLY - on November 22, 2023 Morning
Decorticate Posturing - RESOLVED - on November 22, 2023 Morning
-On November 22, 2023, patient had atrial fibrillation with RVR followed shortly after by an acute episode of unresponsiveness with decorticate posturing, but never actually lost pulses: Code 9 was initially called but subsequently amended to Rapid
Response Team.
-Transferred (on 11/23/23) patient to ICU; continue to monitor in ICU
-Echocardiogram showed, as per cardiology: 'evidence of pericardial tamponade with respiratory variation and moderate to severe circumferential pericardial effusion'
-Tamponade with associated hypotension was present, patient received IV fluids
-Pericardiocentesis was performed with bloody pericardial drainage - with 275 cc of serosanguineous pericardial fluid output
-Because of bloody pericardial drainage, Heparin Drip being stopped, no anticoagulation at this time
-Neurology consulted, recommendations appreciated
-Appreciate cardiology recommendations
-Continue Colchicine (if Amiodarone is started, the dose of Colchicine will need to be reduced)
Atrial Fibrillation with RVR - RESOLVED
Hypotension
Cardiogenic Shock Secondary to Pericardial Tamponade
-AFib possibly secondary to possible pericarditis
-Monitor in ICU
-Cardizem drip was initially ordered, but later held due to hypotension and heart rate improved
Elevated AST
Elevated ALT
-Secondary to cardiogenic shock?
-Trend
ARMANDO -hold further doses of Lasix. Stop AKIN inhibitor. Check bladder scan. Repeat labs in the morning.
Hyponatremia - due to hyperglycemia. Will consider consulting nephrology.
DM2 with hyperglycemia -hemoglobin A1c 7.0%. Hold oral agents, use moderate resistance aspart scale. Consider Diabetes FUDGER consultation.
HTN
Hypercholesterolemia
BPH
Obesity due to excess calories
Full code
On November 22, 2023, I spoke to patient's Dana and updated her on patient's medical condition and the events leading to patient's transfer to ICU.
Anticipated Discharge: > 48 hours
Subjective/Interval History
-
Date of Service: November 23, 2023
Patient was seen and examined. He reports he is still fatigued, did not report lightheadedness, still with some chest tightness which feels better.
Objective Data
-
Labs:
Laboratory Results
11/23/23 11/23/23
04:43 07:26
WBC 10.3
Hgb 13.2
Hct 37.7 L
Plt Count 362 D
APTT 66.8 H
Sodium 135
Potassium 4.4
Chloride 100
Carbon Dioxide 24
BUN 58 H
Creatinine 1.2
Glucose 120 H
Calcium 8.7 D
Total Bilirubin 1.4 H
AST 300 H
ALT 336 H
Alkaline Phosphatase 118
Vital Signs:
Vital Signs
Temp Pulse Resp BP Pulse Ox
97.9 F 82 16 140/87 97
11/23/23 12:08 11/23/23 08:15 11/23/23 08:15 11/23/23 08:00 11/23/23 01:46
I&O
11/22/23 11/23/23 11/24/23
06:59 06:59 06:59
Intake Total 720 / 720 1070 / 1082 265 / 265
Output Total 225 / 225 2450 / 2450 350 / 350
Balance 495 / 495 -1380 / -1368 -85 / -85
--- NOTE | 2023-11-23 14:57 | PTCARENOTE ---
Information packets regarding pericarditis and pericardial effusion given to PT and family, answered all questions and concerns, PT's assessment remains unchanged, PT has been up and ambulating to bathroom, PT denies any complaints at this time
[2023-11-23] MEDS: FLOMAX 0.400000000000000022 MG PO (16:07)
[2023-11-23] MEDS: LIDOCAINE 4% PATCH 1 PATCH TOPICAL (16:07)
[2023-11-23] MEDS: PROTONIX 40 MG PO (16:07)
[2023-11-23] MEDS: PROSCAR 5 MG PO (16:07)
[2023-11-23] MEDS: HEPARIN 5000 UNITS SC ×2 (16:13→23:01)
[2023-11-23 17:17] LABS: Glucose - Point of Care 224 mg/dl (70-99)
[2023-11-23] MEDS: NOVOLOG FLEXPEN-MODERATE RESISTANCE 3 UNITS SC (17:20)
--- NOTE | 2023-11-23 21:37 | PTCARENOTE ---
Received at 19:00. Ox3, pleasant. SR 80-90s. Palpable pulses. Trace B/L LE edema. Pericardial drain present, dressing CDI. No further drainage noted in bulb. RA, breath sounds clear/diminished. Pulse 95% and above. Steady gait, ambulates to the
bathroom with x1 assist--monitoring of wires and drain. Safe environment maintained, call amador within reach, pt repositioning self.
[2023-11-23] MEDS: LANTUS 0.149999999999999994 UNITS SC (22:58)
[2023-11-23 23:07] LABS: Glucose - Point of Care 188 mg/dl (70-99)
[2023-11-24] VITALS (8 sets, daily range): BP systolic 128–149; BP diastolic 75–83; BMI 29.2
--- NOTE | 2023-11-24 01:42 | TRANSFER ---
Report called to Isaac in IVU, pt transferred with belongings.
--- NOTE | 2023-11-24 02:29 | PTCARENOTE ---
received patient from ICU. report given by Eduarda PATEL. patient AAOx3. pleasant. standby assist oob, unsteady gait. states having L chest tenderness/drain site pain with movement. denies any pain at this time, resting in bed. SR 80s. bp stable.
pericardial drain site intact-no new drainage noted. +1 LE edema/+ pulses. R groin site-removed dressing/MEGHAN. reviewed plan of care with patient and verbalized understanding. call amador within reach. educated patient to call for assistance.
[2023-11-24 04:59] LABS: % Basophils 0.6 % (0-2); % Eosinophils 2.5 % (0-6); % Immature Granulocytes 0.4 % (0-0.5); % Lymphocytes 17.4 % (20.5-51.1); % Monocytes 12.7 % (1.7-9.3); % Neutrophils 66.4 % (42.2-75.2); Absolute Eosinophils 0.2 10^3/uL (0-0.7); Absolute Lymphocytes 1.2 10^3/uL (1.2-3.4); Absolute Monocytes 0.9 10^3/uL (0.1-0.6); Absolute Neutrophils 4.7 10^3/uL (1.4-6.5); Hematocrit 37.7 % (39.0-52.0); Hemoglobin 13.1 g/dL (13.0-18.0); Mean Corp Hgb Conc. 34.7 g/dL (33.0-37.0); Mean Corpuscular Hgb 29.5 pg (27.0-31.0); Mean Corpuscular Volume 84.9 fL (80.0-94.0); Mean Platelet Volume 9.4 fL (7.4-10.4); Nucleated Red Blood Cells % 0 % (-); Platelet Count 391 10^3/uL (130-400); Red Blood Cell Count 4.44 10^6/uL (4.70-6.10); Red Cell Dist. Width 13.3 % (11.5-14.5); White Blood Cell Count 7.1 10^3/uL (4.8-10.8)
[2023-11-24 05:31] LABS: ALT (SGPT) 306 U/L (0-50); AST (SGOT) 115 U/L (17-59); Albumin 3.2 g/dl (3.5-5.0); Alkaline Phosphatase 123 U/L (38-126); Blood Urea Nitrogen 28 mg/dl (9-20); Calcium 8.1 mg/dl (8.4-10.2); Carbon Dioxide 29 mmol/L (22-30); Chloride 104 mmol/L (98-107); Estimated Creatinine Clearance 79 ml/min; Glucose 152 mg/dl (70-99); Magnesium 2.3 mg/dl (1.6-2.3); Phosphorus 3.3 mg/dl (2.5-4.5); Potassium 4.5 mmol/L (3.5-5.1); Sodium 135 mmol/L (135-145); Total Bilirubin 1.3 mg/dl (0.2-1.3); Total Protein 5.6 g/dl (6.3-8.2); eGFR > 60.00
[2023-11-24 05:32] LABS: NT-proBNP 900 pg/ml
[2023-11-24 07:18] LABS: Glucose - Point of Care 130 mg/dl (70-99)
[2023-11-24] MEDS: NOVOLOG FLEXPEN-MODERATE RESISTANCE SC (07:51)
[2023-11-24] MEDS: LOW STRENGTH ASPIRIN 81 MG PO (09:07)
[2023-11-24] MEDS: COLCHICINE 0.599999999999999978 MG PO (09:07)
[2023-11-24] MEDS: ZETIA 10 MG PO (09:08)
--- NOTE | 2023-11-24 09:32 | PTCARENOTE ---
Received patient this morning resting in bed. Patient requesting assistance to the bathroom, stated he felt unsteady and a little 'wobbly'. Accu check 130. Sat on the side of the bed a while and then assisted to the bathroom, supervision only and
felt better although states just walking a short distance made him feel fatigued. Sitting oob in the chair now eating breakfast.
[2023-11-24] MEDS: HEPARIN 5000 UNITS SC ×3 (10:34→22:48)
[2023-11-24] MEDS: LIDOCAINE 4% PATCH 1 PATCH TOPICAL (10:36)
[2023-11-24] MEDS: FLUSH (NSS) 2 FLUSH IV (10:38)
--- NOTE | 2023-11-24 11:28 | CM ---
CM following for DC planning needs.
Met w/ patient at bedside. Pt. transferred to IVU from ICU.
Reviewed initial assessment. Pt. resides w/ spouse in a private home. He is functionally indep. at baseline w/ ADLs, mobility.
Anticipated DC plan is for home without needs.
Will cont. to follow.
--- NOTE | 2023-11-24 12:00 | W.PN.CARDCBS ---
Addendum entered and electronically signed by Perla Tsai MD 11/24/23 17:01:
I saw and examined the patient.
The Plant Electrical Engineer's note was reviewed and I agree with the note.
Comment: Overall patient is doing better than when he presented. Still continues to have a dry cough and ongoing fatigue especially with any exertion. Shortness of breath has improved.
Given significant decrease in pericardial output, his drain was discontinued by myself at bedside and the wound was dressed. Vital signs reviewed. Lab work reviewed with normalized lactate and normalization of renal function. proBNP mildly
elevated at 900. Exam is notable for a well-appearing gentleman in no acute distress, normal S1 and S2, regular rate, no murmurs, rubs or gallops, decreased breath sounds worse on the left base, more than the right, abdomen is soft, nontender,
nondistended, active bowel sounds, warm extremities 1+ lower extremity edema.
Recommendation:
1. His pericardial drain was discontinued today. Continue to watch on telemetry with plan to repeat limited echocardiogram to reassess pericardial effusion tomorrow morning.
2. Recommend checking a chest x-ray given ongoing dry cough to rule out any concerns for possible pneumonia. We will also trial 20 mg of IV Lasix given he presented with heart failure with preserved LVEF and his filling pressures were elevated.
Defer to primary team in regards to possible management of pneumonia based on chest x-ray findings.
3. In regards to his 1 episode of paroxysmal atrial fibrillation Wednesday night into Wednesday,
Given bloody pericardial effusion, his heparin had been discontinued and he has remained in sinus on telemetry. Given his [id number] score would be elevated at 4, we will plan on at least a 2-week school bus monitor upon discharge to make sure his
A-fib is not recurrent and will defer to outpatient setting having a discussion in regards to risk and benefits of long-term full anticoagulation.
Discussed all of the above with patient and nursing. All questions were addressed.
Perla Tsai MD, MERGED WITH [facility]
Original Note:
Today's Communication / Plan
-
Lasix 20 mg IV x1
D/C pericardial drain
Check echo in AM
Impression / Plan
-
PCP: Dr. Olya Suarez
Cardiology: None prior to admission, seen initially by Dr. Tran
Impression:
Presented with chest discomfort, dyspnea on exertion, weight gain
Newly diagnosed paroxysmal Afib with RVR 11/22/23
Rapid response for unresponsiveness and hypotension 11/22/23
Pericardial effusion with tamponade
s/p pericardiocentesis for 275 ml sanguinous fluid 11/22/23
Cardiogenic shock, CI 1.3 pre-pericardiocentesis and improved to 2.3 post-pericardiocentesis 11/22/23
Hx Hypertension
Hypercholesterolemia
Type 2 diabetes
ARMANDO on mild CKD
Elevated Troponin
Acute HFpEF
Echo 11/22/23: EF 70-75%, RV small and under-filled and in some views appears to be compressed secondary to the pericardial effusion, respiratory variation across the mitral valve suggestive of tamponade physiology, moderate pericardial effusion
mostly over the RV with evidence of hemodynamic compromise and tamponade physiology
Plan:
-Decreased pericardial drainage output in the last 18 hours and plan will be to pull drain 11/24/23.
-Recheck echo 11/25/23 AM.
-Patient had a rapid response 11/22/23, he was in rapid Afib and given Lopressor IV then had unresponsiveness for a few seconds and then awoke, but was persistently hypotensive. Patient had an urgent bedside echo and as noted above had evidence of
pericardial effusion with tamponade physiology. Patient had urgent pericardiocentesis for 275 ml sanguinous fluid, drain left in place.
-Patient was on a Heparin gtt at the time of pericardial effusion, this was for possible PE. Heparin gtt was stopped and then briefly restarted with pericardial drain in place but ultimately stopped again 11/23/23. Will not anticoagulate at this time
due to sanguinous pericardial effusion.
-Patient with new Afib at the time of rapid response 11/22/23. Patient spontaneously converted to SR and remains in SR on tele 11/24/23. Will not start AAD at this point because he is not anticoagulated.
-Started colchicine 0.6 mg BID on 11/23/23. Reviewed with pharmacist and reduced to 0.6 mg daily on 11/24/23.
-LFTs trending down and due to cardiogenic shock
-Troponin peaked at 0.045 and likely due to cardiogenic shock at time of pericardial tamponade.
-CXR looks like B/L pleural effusion and will try a dose of Lasix 20 mg IV x1.
-Talked with patient and 11/24/23. Reviewed admission thus far and provided patient's with a copy of the pathology report so that she can review with a family member that is a pathologist. Patient and feel that patient's fall 6 weeks
ago is related to current events and it's possible that he had pericarditis based on description of pain with deep breath. He also reported LE edema and bloating prior to admission.
HPI: 68-year-old man who is developed generalized fatigue, WESLEY, edema and weight gain over the course of several days.� His weight is up about 12 pounds.� He is also had some left-sided chest climbing stairs yesterday.� His son says he has not been
well since he fell striking the left side of his body about a month ago.� He has lower extremity edema left greater than right.� His dyspnea was notable about a week ago, and also with bending over.� He is only had 1 episode of chest discomfort.� No
history of phlebitis.
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
Subjective
Date of Service: November 24, 2023
He still feels pressure with a deep breath and cough
Objective
Labs:
11/24/23 03:54
11/24/23 03:54
Labs
Hgb 13.1 g/dL (13.0-18.0) 11/24/23 03:54
Hct 37.7 % (39.0-52.0) L 11/24/23 03:54
Plt Count 391 10^3/uL (130-400) 11/24/23 03:54
PT 16.2 Sec (11.4-14.6) H 11/22/23 09:55
INR 1.31 11/22/23 09:55
APTT 66.8 Sec (23.4-35.0) H 11/23/23 07:26
Sodium 135 mmol/L (135-145) 11/24/23 03:54
Potassium 4.5 mmol/L (3.5-5.1) 11/24/23 03:54
BUN 28 mg/dl (9-20) H 11/24/23 03:54
Creatinine 1.0 mg/dL (0.7-1.3) 11/24/23 03:54
Glucose 152 mg/dl (70-99) H 11/24/23 03:54
Troponins
11/22/23 11/22/23 11/22/23
09:55 14:46 22:14
Troponin I < 0.012 < 0.012 0.045 H* D
11/23/23 11/23/23 11/23/23
04:43 06:00 09:45
Troponin I 0.034 Cancelled Cancelled
11/23/23 11/23/23
15:45 21:45
Troponin I Cancelled Cancelled
Vital Signs and I&O:
Vital Signs
Temp Pulse Resp BP Pulse Ox
97.8 F 87 16 128/75 98
11/24/23 11:15 11/24/23 11:45 11/24/23 11:15 11/24/23 11:15 11/24/23 11:15
Vital Signs
Temp Pulse Resp BP Pulse Ox
97.8 F 87 16 128/75 98
11/24/23 11:15 11/24/23 11:45 11/24/23 11:15 11/24/23 11:15 11/24/23 11:15
Intake & Output
02/1211/23/23 11/24/23 11/25/23
06:59 06:59 06:59 06:59
Intake Total 720 / 720 1070 / 1082 745 / 745 240 / 240
Output Total 225 / 225 2450 / 2450 350 / 350 0 / 0
Balance 495 / 495 -1380 / -1368 395 / 395 240 / 240
Physical Exam
Physical Exam
General: AAOX3
HEENT: EOMI
Heart: Reg
Lungs: CTA b/l
Abd: +BS
Ext: +1 edema B/L
Neuro: nonfocal
--- NOTE | 2023-11-24 12:24 | PTCARENOTE ---
Pericardial drain removed by Dr. Tsai at the bedside. 4x4 and [address] in place left chest area.
[2023-11-24] MEDS: LASIX 20 MG IV (12:40)
[2023-11-24] MEDS: NOVOLOG FLEXPEN-MODERATE RESISTANCE 1 UNITS SC (12:54)
[2023-11-24 12:55] LABS: Glucose - Point of Care 182 mg/dl (70-99)
--- NOTE | 2023-11-24 16:14 | PTCARENOTE ---
The patient's was visiting and asked to speak to either the hospitalist or cardiology for an update. TT to Dr. Groves and the team. Valentina Paul PA in to speak with the and patient, all questions answered and plan of care reviewed.
[2023-11-24 17:49] LABS: Glucose - Point of Care 230 mg/dl (70-99)
[2023-11-24] MEDS: NOVOLOG FLEXPEN-MODERATE RESISTANCE 3 UNITS SC (17:49)
[2023-11-24] MEDS: PROTONIX 40 MG PO (17:50)
[2023-11-24] MEDS: FLOMAX 0.400000000000000022 MG PO (17:50)
[2023-11-24] MEDS: PROSCAR 5 MG PO (17:50)
--- NOTE | 2023-11-24 19:54 | W.PN.HOSP.TC ---
Today's Communication/Plan
-
Please see below
Lasix x1 today
Will consider CT Chest after discussing with pulmonary
Repeat echo tomorrow
Assessment / Plan
Assessment / Plan
Physical Exam
Gen-AAOx3, NAD
HEENT-NC, AT, anicteric, clear oral mm
Neck-supple
CV-reg, no M, +S1/S2
Lungs-CTAB
Abd-soft, NT, ND
Ext-no edema
Musculoskeletal-no cyanosis. 1+ edema bilaterally
Skin-warm and dry
Neuro-grossly non-focal
Psych-calm, cooperative
Assessment/Plan
Chest pressure
Cardiac Tamponade
Possible Pericarditis
Pericardial effusion with tamponade s/p pericardiocentesis for 275 ml sanguinous fluid 11/22/23
Cardiogenic Shock
Bilateral Pleural Effusion on CXR
Dyspnea on Exertion
Lower Extremity Edema
Lightheadedness, worsening chest tightness and rapid heart heart rate on November 22, 2023 Morning (rapid response for unresponsiveness and hypotension 11/22/23)
Unresponsiveness (vagal vs TIA vs PE vs cardiac tamponade) - RESOLVED SPONTANEOUSLY - on November 22, 2023 Morning
Decorticate Posturing - RESOLVED - on November 22, 2023 Morning
-On November 22, 2023, patient had atrial fibrillation with RVR followed shortly after by an acute episode of unresponsiveness with decorticate posturing, but never actually lost pulses: Code 9 was initially called but subsequently amended to Rapid
Response Team.
-Transferred (on 11/23/23) patient to ICU; now transferred to IVU
-Echocardiogram showed, as per cardiology: 'evidence of pericardial tamponade with respiratory variation and moderate to severe circumferential pericardial effusion'
-Tamponade with associated hypotension was present, patient received IV fluids
-Pericardiocentesis was performed with bloody pericardial drainage - with 275 cc of serosanguineous pericardial fluid output
-Because of bloody pericardial drainage, Heparin Drip being stopped, no anticoagulation at this time: anticoagulation will be revisited outpatient with cardiology
-Pericardial drain was discontinued on 11/24/23
-Recheck echocardiogram on 11/25/23
-Neurology consulted, recommendations appreciated
-Appreciate cardiology recommendations
-Continue Colchicine 0.6 mg daily (if Amiodarone is started, the dose of Colchicine will need to be reduced)
Cough
-Will check with pulmonary about doing a CT Chest if able
-Monitor temperatures, white count
Newly Diagnosed Paroxysmal Atrial Fibrillation with RVR on 11/22/23 - RESOLVED
Hypotension
Cardiogenic Shock Secondary to Pericardial Tamponade
-AFib possibly secondary to possible pericarditis
-Cardizem drip was initially ordered, but later held due to hypotension and heart rate improved
-Now in sinus rhythm
Elevated AST
Elevated ALT
-Secondary to cardiogenic shock?
-Trending: improving
ARMANDO - Lasix 20 mg IV x1 on 11/24/23 as per cardiology. AKIN inhibitor held. Check bladder scan. Repeat labs in the morning.
Hyponatremia - due to hyperglycemia. Will consider consulting nephrology.
DM2 with hyperglycemia -hemoglobin A1c 7.0%. Hold oral agents, use moderate resistance aspart scale. Consider Diabetes PICKLE CUTTER consultation.
Hypertension
Hypercholesterolemia
BPH
Obesity due to excess calories
Full code
On November 22, 2023, I spoke to patient's Dana and updated her on patient's medical condition and the events leading to patient's transfer to ICU.
Anticipated Discharge: > 48 hours
Subjective/Interval History
-
Date of Service: November 24, 2023
Patient was seen and examined. He reported some chest soreness especially where he fell recently before coming to the hospital on his left side.
Objective Data
-
Vital Signs:
Vital Signs
Temp Pulse Resp BP Pulse Ox
97.5 F 95 20 128/77 100
11/24/23 19:38 11/24/23 16:15 11/24/23 19:38 11/24/23 15:21 11/24/23 19:38
I&O
11/23/23 11/24/23 11/25/23
06:59 06:59 06:59
Intake Total 1070 / 1082 745 / 745 480 / 480
Output Total 2450 / 2450 350 / 350 0 / 0
Balance -1380 / -1368 395 / 395 480 / 480
[2023-11-24 20:57] LABS: Glucose - Point of Care 239 mg/dl (70-99)
[2023-11-24] MEDS: LANTUS 0.149999999999999994 UNITS SC (22:48)
--- NOTE | 2023-11-25 00:14 | PTCARENOTE ---
Received pt at handoff. AOX3. Assessment noted as documented. 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 Pt c/o soreness/tenderness around old L drain site. 4x[address] and c/d/i. Currently in bed; call marjorie w/in reach.
[2023-11-25 03:10] VITALS: BP 123/88
[2023-11-25 03:13] VITALS: BMI 28.7
[2023-11-25 07:36] VITALS: BP 140/84
[2023-11-25 08:31] LABS: Glucose - Point of Care 155 mg/dl (70-99)
[2023-11-25] MEDS: NOVOLOG FLEXPEN-MODERATE RESISTANCE 1 UNITS SC ×2 (08:32→13:32)
[2023-11-25] MEDS: LIDOCAINE 4% PATCH TOPICAL (09:00)
--- NOTE | 2023-11-25 09:13 | W.PN.PUL3 ---
Today's Communication / Plan
-
CT Chest today, no need for contrast
Continue IV diuresis per team
Colchicine for pericarditis
If negative, can consider discharge planning
Outpatient pulmonary/sleep FU recommended
Assessment
-
Patient is a 68 year old M with PMH significant for HTN and DM-II presents to ED 11/20/23 complaining of generalized fatigue, WESLEY, weight gain and LE edema, developed acute on chronic SOB symptoms this AM with HR max 170s in AFib with RVR.� Had
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 patient found to have pericardial effusion with tamponade physiology and underwent
pericardial drain.� He continues to be managed in the ICU and critical care services on board for additional management/recommendations.
Acute pericardial effusion with tamponade physiology c/b cardiogenic shock s/p pericardiocentesis with drain placement - DDx of bloody fluid include trauma (fall recently ~1 week ago) vs URI (recent cold) with pericarditis
Acute onset unresponsiveness, never lost pulses/no arrest, resolved spontaneously
Afib with RVR -currently in NSR s/p pericardiocentesis with drain placement
WESLEY - due to above and his dyspnea has now resolved
LE edema - due to cardiogenic shock from pericardial effusion
Trace pleural effusion due to cardiogenic shock
Malaise/lightheadedness
ARMANDO - improving
Hyponatremia
Metabolic acidosis - resolved
Transaminitis
Hyperglycemia - resolved
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
HTN
Hypercholesterolemia
NIDDM
Bilateral hernia repair
[place] teeth
Obesity BMI 30.3
Plan
Patient has markedly improved since his pericardiocentesis with drain placement; remains on room air and is HDN stable in NSR
No longer in A-fib and he continues to be in NSR with rate controlled and dyspnea has also resolved --> no need to workup for PE as there is low suspicion for acute PE
Ongoing chest tightness/discomfort but this seems consistent with pericardial effusion post drainage and residual pain
Follow-up pericardial fluid studies including bacterial culture, fungus and AFB; follow up pleural fluid cytology as well
Repeat TTE for pericardial surveillance as per cardiology
Colchicine being started for suspected pericarditis as cause of his pericardial effusion
CXR reviewed with increased L sided effusion, IV diuresis continued per team
Ongoing lasix treatment
Follow daily weights
Cough evaluation can be done as OP with PFTs
CT chest discussed for reassurance, I do not think he needs IV contrast given recent ARMANDO, low risk for VTE
If negative, can move forward with discharge planning
Sleep eval as OP recommended as well
Replete K>4, Mg>2, PO4>3
Maintain MAP>65
He is on room air --> keep SpO2 >90-94%
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
EEG was obtained yesterday showing normal awake/drowsy EEG with no evidence of epileptiform activity or focal slowing.
Maintain euglycemia with goal BG 140-180mg/dL
Trend LFTs
Encouraged OOB/PT
DVT ppx --> I will start HSQ and eventually pt can start systemic AC given he had A-fib - will defer this decision to cardiology
Diagnostic Data
Duplex 11/21/23: No evidence of deep venous thrombosis bilaterally.
CXR 11/20/23: IMPRESSION: Suspected tiny left pleural effusion.
CXR 11-22-2023: No acute disease of the chest
CT Pelvis 2016: IMPRESSION:
1. Skin thickening and subcutaneous inflammatory change within the left inguinal crease consistent with a cellulitis. No associated organized fluid collections.
2. Discogenic disease at L4-5.
Subjective Data
-
Date of Service:
Date of Service: November 25, 2023
Chief Complaint: Pulmonary Follow Up
Subjective:
we are asked to re-eval for ongoing chest tightness/pain
otherwise stable on RA
no new developments
Objective Data
Data Reviewed
Vital Signs / I&O / Oxygen:
Vital Signs
Temp Pulse Resp BP Pulse Ox
97.7 F 82 20 123/88 99
11/25/23 07:37 11/25/23 05:15 11/25/23 07:37 11/25/23 03:10 11/25/23 07:37
Intake and Output
11/24/23 11/25/23 11/26/23
06:59 06:59 06:59
Intake Total 745 / 745 800 / 800
Output Total 350 / 350 0 / 0
Balance 395 / 395 800 / 800
SaO2 99
Physical Exam
General: Comfortable and Other (NAD)
HEENT: Normocephalic, Anicteric and Moist Mucous Membranes
Cardiovascular: S1-S2 and Regular Rhythm
Respiratory: Clear and Non-Labored Respirations
GI: Soft, Non Distended and Non Tender
Neurology: Awake, Alert, Oriented, AO x 3 and No Motor Deficits
Skin: Warm, Dry and Good Color
Labs/Micro/Reports
Microbiology
11/22/23 11:41 Pericardial Fluid Acid Fast Bacilli Smear - Preliminary
11/22/23 11:41 Pericardial Fluid Acid Fast Bacilli Culture - Preliminary
11/22/23 11:41 Pericardial Fluid Body Fluid Culture - Preliminary
No Growth After 48 Hours
11/22/23 11:41 Pericardial Fluid Gram Stain - Preliminary
11/21/23 19:07 Nose MRSA Screen - Final
No Methicillin Resistant Staphylococcus aureus isolated.
11/22/23 11:41 Pericardial Fluid Fungal Culture - Preliminary
Culture in progress.
Positive cultures are reported as soon as detected.
Final report to follow in four to five weeks.
[2023-11-25] MEDS: ZETIA 10 MG PO (09:18)
[2023-11-25] MEDS: HEPARIN 5000 UNITS SC ×3 (09:18→23:06)
[2023-11-25] MEDS: COLCHICINE 0.599999999999999978 MG PO (09:18)
[2023-11-25] MEDS: LOW STRENGTH ASPIRIN 81 MG PO (09:18)
--- NOTE | 2023-11-25 09:22 | PTCARENOTE ---
ekg done, labs drawn and sent. sent for CT scan and IV lasix given post test,. will continue to monitor.
[2023-11-25 09:36] LABS: % Basophils 0.9 % (0-2); % Eosinophils 3.9 % (0-6); % Immature Granulocytes 0.6 % (0-0.5); % Lymphocytes 20.5 % (20.5-51.1); % Monocytes 10.8 % (1.7-9.3); % Neutrophils 63.3 % (42.2-75.2); Absolute Basophils 0.1 10^3/uL (0-0.2); Absolute Eosinophils 0.3 10^3/uL (0-0.7); Absolute Lymphocytes 1.4 10^3/uL (1.2-3.4); Absolute Monocytes 0.7 10^3/uL (0.1-0.6); Absolute Neutrophils 4.4 10^3/uL (1.4-6.5); Hematocrit 39.5 % (39.0-52.0); Hemoglobin 13.6 g/dL (13.0-18.0); Mean Corp Hgb Conc. 34.4 g/dL (33.0-37.0); Mean Corpuscular Hgb 28.9 pg (27.0-31.0); Mean Corpuscular Volume 83.9 fL (80.0-94.0); Nucleated Red Blood Cells % 0 % (-); Platelet Count 395 10^3/uL (130-400); Red Blood Cell Count 4.71 10^6/uL (4.70-6.10); Red Cell Dist. Width 13.2 % (11.5-14.5); White Blood Cell Count 6.9 10^3/uL (4.8-10.8)
[2023-11-25 10:03] LABS: ALT (SGPT) 226 U/L (0-50); AST (SGOT) 67 U/L (17-59); Albumin 3.3 g/dl (3.5-5.0); Alkaline Phosphatase 122 U/L (38-126); Blood Urea Nitrogen 18 mg/dl (9-20); Calcium 8.4 mg/dl (8.4-10.2); Carbon Dioxide 25 mmol/L (22-30); Chloride 103 mmol/L (98-107); Estimated Creatinine Clearance 87 ml/min; Glucose 199 mg/dl (70-99); Potassium 4.6 mmol/L (3.5-5.1); Sodium 133 mmol/L (135-145); Total Bilirubin 1.2 mg/dl (0.2-1.3); Total Protein 5.7 g/dl (6.3-8.2); eGFR > 60.00
[2023-11-25 11:41] VITALS: BP 141/85
--- NOTE | 2023-11-25 11:49 | W.PN.HOSP.TC ---
Today's Communication/Plan
-
CT Imaging of Chest and Abdomen Pelvis -- discussed this with pulmonary
Possible discharge tomorrow
Assessment / Plan
Assessment / Plan
Physical Exam
Gen-AAOx3, NAD
HEENT-NC, AT, anicteric, clear oral mm
Neck-supple
CV-reg, no M, +S1/S2
Lungs-CTAB
Abd-soft, NT, ND
Ext-no edema
Musculoskeletal-no cyanosis. 1+ edema bilaterally
Skin-warm and dry
Neuro-grossly non-focal
Psych-calm, cooperative
Assessment/Plan
Chest pressure
Cardiac Tamponade
Possible Pericarditis
Pericardial effusion with tamponade s/p pericardiocentesis for 275 ml sanguinous fluid 11/22/23
Cardiogenic Shock
Bilateral Pleural Effusion on CXR
Dyspnea on Exertion
Lower Extremity Edema
Lightheadedness, worsening chest tightness and rapid heart heart rate on November 22, 2023 Morning (rapid response for unresponsiveness and hypotension 11/22/23)
Unresponsiveness (vagal vs TIA vs PE vs cardiac tamponade) - RESOLVED SPONTANEOUSLY - on November 22, 2023 Morning
Decorticate Posturing - RESOLVED - on November 22, 2023 Morning
-On November 22, 2023, patient had atrial fibrillation with RVR followed shortly after by an acute episode of unresponsiveness with decorticate posturing, but never actually lost pulses: Code 9 was initially called but subsequently amended to Rapid
Response Team.
-Transferred (on 11/23/23) patient to ICU; now he is in IVU
-Echocardiogram showed, as per cardiology: 'evidence of pericardial tamponade with respiratory variation and moderate to severe circumferential pericardial effusion'
-Tamponade with associated hypotension was present, patient received IV fluids
-Pericardiocentesis was performed with bloody pericardial drainage - with 275 cc of serosanguineous pericardial fluid output
-Because of bloody pericardial drainage, Heparin Drip being stopped, no anticoagulation at this time: anticoagulation will be revisited outpatient with cardiology
-Pericardial drain was discontinued on 11/24/23
-Echocardiogram being rechecked on 11/25/23
-Neurology consulted, recommendations appreciated
-Appreciate cardiology recommendations
-Continue Colchicine 0.6 mg daily (if Amiodarone is started, the dose of Colchicine will need to be reduced)
-Patient still has chest tightness and soreness on his left lower chest/left upper flank area: due to his recent fall, discussed case with planning advisor and CT imaging has been ordered for chest, abdomen and pelvis
Cough
-CT Chest imaging being ordered today
-Monitor temperatures, white count
Newly Diagnosed Paroxysmal Atrial Fibrillation with RVR on 11/22/23 - RESOLVED
Hypotension
Cardiogenic Shock Secondary to Pericardial Tamponade
-AFib possibly secondary to possible pericarditis
-Cardizem drip was initially ordered, but later held due to hypotension and heart rate improved
-Now in sinus rhythm
Elevated AST - IMPROVING
Elevated ALT - IMPROVING
-Suspected secondary to cardiogenic shock
-Trending: improving
Acute Kidney Injury - RESOLVED - Lasix 20 mg IV x1 on 11/24/23 as per cardiology. AKIN inhibitor held - resume either inpatient or outpatient. Repeat labs in the morning.
Hyponatremia - due to hyperglycemia. Will consider consulting nephrology.
DM2 with hyperglycemia -hemoglobin A1c 7.0%. Hold oral agents, use moderate resistance aspart scale. Consider Diabetes FOUNDATION ASSISTANT consultation.
Hypertension
Hypercholesterolemia
BPH
Obesity due to excess calories
Full code
On November 22, 2023, I spoke to patient's Dana and updated her on patient's medical condition and the events leading to patient's transfer to ICU.
On November 25, 2023, I spoke to patient's Dana (via patient's phone which was on speaker phone) and updated her on patient's medical condition and discussed CT imaging.
Total time spent today on chart review, seeing and examining the patient, documentation, placing orders, speaking with patient and his and talking with planning advisor, was 55 minutes.
Anticipated Discharge: 24 - 48 hours
Subjective/Interval History
-
Date of Service: November 25, 2023
Patient was seen and examined. He reported some chest tightness and soreness still, he is able to walk around and sit down without any lightheadedness. He denied any other new, significant complaints.
Objective Data
-
Labs:
Laboratory Results
11/25/23
09:03
WBC 6.9
Hgb 13.6
Hct 39.5
Plt Count 395
Sodium 133 L
Potassium 4.6
Chloride 103
Carbon Dioxide 25
BUN 18
Creatinine 0.9
Glucose 199 H
Calcium 8.4
Total Bilirubin 1.2
AST 67 H
ALT 226 H
Alkaline Phosphatase 122
Vital Signs:
Vital Signs
Temp Pulse Resp BP Pulse Ox
97.7 F 82 20 123/88 97
11/25/23 07:37 11/25/23 05:15 11/25/23 07:37 11/25/23 03:10 11/25/23 08:00
I&O
11/24/23 11/25/23 11/26/23
06:59 06:59 06:59
Intake Total 745 / 745 800 / 800
Output Total 350 / 350 0 / 0
Balance 395 / 395 800 / 800
--- NOTE | 2023-11-25 11:59 | W.PN.CARDCBS ---
Addendum entered and electronically signed by Shraddha Riggs MD 11/25/23 13:06:
I saw and examined the patient.
The Cd Mixer's note was reviewed and I agree with the note.
Comment:
Patient admitted with cardiogenic shock in the setting of tamponade. Underwent pericardiocentesis and drain. Drain has been removed.
Echocardiogram from today reviewed which revealed trivial pericardial effusion. No evidence of tamponade currently.
Patient continues with cough which is likely secondary to pleural effusions which I suspect are secondary to initial poor cardiac output and cardiogenic shock leading to heart failure with preserved ejection fraction. He is responding to IV Lasix
and has decreased 4 pounds overnight. Still with edema and clinically with heart failure with preserved ejection fraction.
-Will give another dose of IV Lasix today. Pleural effusions noted.
-Check input output and weight tomorrow.
-Follow electrolytes.
-Incentive spirometry
-Continue colchicine
-Labs related to pericardial effusion still pending. So far negative.
-Check ALEXIS, rheumatoid factor, sed rate and CRP
-Check echocardiogram mid-to-late next week as an outpatient
Given atrial fibrillation which may have been in part related to pericarditis patient is currently off oral anticoagulation given concern for bleeding. No further atrial fibrillation seen.
-EKG stable. Telemetry stable.
-Patient will undergo 2-week monitor which will be arranged for early next week unless patient is well enough to be discharged tomorrow
Original Note:
Today's Communication / Plan
-
Rheum labs ordered
No recurrence of effusion by echo
Recheck ECG
Lasix 40 mg IV now
Impression / Plan
-
PCP: Dr. Olya Suarez
Cardiology: None prior to admission, seen initially by Dr. Tran
Impression:
Presented with chest discomfort, dyspnea on exertion, weight gain
Newly diagnosed paroxysmal Afib with RVR 11/22/23
Rapid response for unresponsiveness and hypotension 11/22/23
Pericardial effusion with tamponade
s/p pericardiocentesis for 275 ml sanguinous fluid 11/22/23
Cardiogenic shock, CI 1.3 pre-pericardiocentesis and improved to 2.3 post-pericardiocentesis 11/22/23
Hx Hypertension
Hypercholesterolemia
Type 2 diabetes
ARMANDO on mild CKD
Elevated Troponin
Acute HFpEF
Echo 11/22/23: EF 70-75%, RV small and under-filled and in some views appears to be compressed secondary to the pericardial effusion, respiratory variation across the mitral valve suggestive of tamponade physiology, moderate pericardial effusion
mostly over the RV with evidence of hemodynamic compromise and tamponade physiology
Echo 11/25/23: EF 55-60%, normal RV size and function, trace MR, no TR, trivial pericardial effusion
Plan:
-No recurrence of pericardial effusion on repeat echo 11/25/23.
-Weight down 4 lbs overnight after Lasix 20 mg IV x1 on 11/24/23. Will give Lasix 40 mg IV x1 now. Add tubigrips for increased LE edema.
-EF preserved by echo 11/25/23.
-Pathology reviewed with patient and there was no evidence of malignancy. Fluid was bloody. He is not a candidate for OAC at that time. Rheumatology labs ordered 11/25/23.
-He had a rapid response 11/22/23, he was in rapid Afib and given Lopressor IV then had unresponsiveness for a few seconds and then awoke, but was persistently hypotensive. Patient had an urgent bedside echo and as noted above had evidence of
pericardial effusion with tamponade physiology. Patient had urgent pericardiocentesis for 275 ml sanguinous fluid.
-Remains in SR now. Will recheck ECG, ordered 11/25/23.
-Patient was on a Heparin gtt at the time of pericardial effusion, this was for possible PE. Heparin gtt was stopped and then briefly restarted with pericardial drain in place but ultimately stopped again 11/23/23 due to ongoing bloody drainage. Will
not anticoagulate at this time due to sanguinous pericardial effusion.
-Started colchicine 0.6 mg BID on 11/23/23. Reviewed with pharmacist and reduced to 0.6 mg daily on 11/24/23.
-LFTs trending down and due to cardiogenic shock
-Troponin peaked at 0.045 and likely due to cardiogenic shock at time of pericardial tamponade.
-IS ordered 11/25/23
HPI: 68-year-old man who is developed generalized fatigue, WESLEY, edema and weight gain over the course of several days.� His weight is up about 12 pounds.� He is also had some left-sided chest climbing stairs yesterday.� His son says he has not been
well since he fell striking the left side of his body about a month ago.� He has lower extremity edema left greater than right.� His dyspnea was notable about a week ago, and also with bending over.� He is only had 1 episode of chest discomfort.� No
history of phlebitis.
Progress Note - Pharmacy Helper
Subjective
Date of Service: November 25, 2023
Less bloated, but still with a dry cough
Objective
Labs:
11/25/23 09:03
11/25/23 09:03
Labs
Hgb 13.6 g/dL (13.0-18.0) 11/25/23 09:03
Hct 39.5 % (39.0-52.0) 11/25/23 09:03
Plt Count 395 10^3/uL (130-400) 11/25/23 09:03
PT 16.2 Sec (11.4-14.6) H 11/22/23 09:55
INR 1.31 11/22/23 09:55
APTT 66.8 Sec (23.4-35.0) H 11/23/23 07:26
Sodium 133 mmol/L (135-145) L 11/25/23 09:03
Potassium 4.6 mmol/L (3.5-5.1) 11/25/23 09:03
BUN 18 mg/dl (9-20) 11/25/23 09:03
Creatinine 0.9 mg/dL (0.7-1.3) 11/25/23 09:03
Glucose 199 mg/dl (70-99) H 11/25/23 09:03
Troponins
11/22/23 11/22/23 11/23/23
14:46 22:14 04:43
Troponin I < 0.012 0.045 H* D 0.034
11/23/23 11/23/23 11/23/23
06:00 09:45 15:45
Troponin I Cancelled Cancelled Cancelled
11/23/23
21:45
Troponin I Cancelled
Vital Signs and I&O:
Vital Signs
Temp Pulse Resp BP Pulse Ox
97.7 F 82 20 123/88 97
11/25/23 07:37 11/25/23 05:15 11/25/23 07:37 11/25/23 03:10 11/25/23 08:00
Vital Signs
Temp Pulse Resp BP Pulse Ox
97.7 F 82 20 123/88 97
11/25/23 07:37 11/25/23 05:15 11/25/23 07:37 11/25/23 03:10 11/25/23 08:00
Intake & Output
11/23/23 11/24/23 11/25/23 11/26/23
06:59 06:59 06:59 06:59
Intake Total 1070 / 1082 745 / 745 800 / 800
Output Total 2450 / 2450 350 / 350 0 / 0
Balance -1380 / -1368 395 / 395 800 / 800
Physical Exam
Physical Exam
General: AAOX3
HEENT: EOMI
Heart: Reg
Lungs: CTA b/l
Abd: +BS
Ext: +1-2 pitting B/L LE edema
Neuro: nonfocal
[2023-11-25 12:15] LABS: Glucose - Point of Care 196 mg/dl (70-99)
[2023-11-25 13:14] LABS: Erythrocyte Sed Rate 25 mm/hour (0-20)
[2023-11-25] MEDS: LASIX 20 MG IV ×2 (13:27→13:38)
--- NOTE | 2023-11-25 13:29 | PN.DE.MGMTRT ---
Insulin Management
- -
11/25/2023 Diabetes Management Consult
Patient admitted with fatigue, dyspnea on exertion, acute chf. s/p cardiac cath 11/22. PMH HTN, type 2 diabetes. Preior to admission was taking glipizide 5 mg BID, metformin 500 mg BID trulicity .75 Wednesday and Actos 30 mg daily. A1C on admission
7.0%.
All oral meds have been held, glucose has trended up to 200's. Lantus has been started.
With A1C of 7 will start Jardiance 10 mg, resume metformin and glipizide BID. Will NOT resume Actos, will stop lantus. (Patient is adamant he will not take insulin at home). Patient has working glucose monitor at home. Will ask CM to check cost
of Jardiance and Farxiga.
Diabetes History
- -
Type of Diabetes: 2
Pre-Admission Diabetes Regimen
11/25/23
09:
Creatinine 0.9
Lab Results
Hemoglobin A1c 7.0 % (4.0-5.6) H 11/20/23 21:42
Insulin Pump Settings
IP Diabetes Regimen
11/24/23 11/24/23 11/25/23
17:48 20:55 08:29
Glucose
POC Glucose 230 H 239 H 155 H
11/25/23 11/25/23
09:03 12:14
Glucose 199 H
POC Glucose 196 H
Meal type: Lunch
Amount consumed: 100%
Amount consumed: 100%
Patient Education
--- NOTE | 2023-11-25 14:34 | CM ---
Priced Jardiance + Farxiga thru insurance plan, [employer] [phone].
Anticipated cost of a 30 d supply of Jardiance is ~120/mo
Anticipated cost of a 30 d supply of Farxiga is ~ 115/mo
Relayed the above to Senior Database Engineer BEN.
Can provide 30 d free coupon but no coupon beyond the first month due to Medicare-recipient.
[2023-11-25 15:29] VITALS: BP 144/89
[2023-11-25 15:54] LABS: Rheumatoid Agglutinin Less Than 10 IU (<10 IU)
[2023-11-25] MEDS: PROTONIX 40 MG PO (16:24)
[2023-11-25] MEDS: GLUCOTROL 5 MG PO (16:24)
[2023-11-25] MEDS: FLOMAX 0.400000000000000022 MG PO (16:25)
[2023-11-25] MEDS: GLUCOPHAGE 500 MG PO (16:25)
[2023-11-25] MEDS: PROSCAR 5 MG PO (16:25)
[2023-11-25 17:41] LABS: Glucose - Point of Care 218 mg/dl (70-99)
[2023-11-25] MEDS: NOVOLOG FLEXPEN-MODERATE RESISTANCE 3 UNITS SC (17:58)
[2023-11-25 20:04] VITALS: BP 130/84
[2023-11-25 22:37] VITALS: BP 138/78
[2023-11-25 22:43] LABS: Glucose - Point of Care 202 mg/dl (70-99)
--- NOTE | 2023-11-25 23:45 | PTCARENOTE ---
Received pt at handoff. AOx3. Tele- SR. Assessment noted as documented. No c/o pain/discomfort. Currently in bed; call amador w/in reach.
[2023-11-26 03:42] VITALS: BP 148/84
[2023-11-26 03:50] VITALS: BMI 27.9
[2023-11-26 04:52] LABS: Blood Urea Nitrogen 25 mg/dl (9-20); Calcium 8.6 mg/dl (8.4-10.2); Carbon Dioxide 31 mmol/L (22-30); Chloride 98 mmol/L (98-107); Estimated Creatinine Clearance 79 ml/min; Glucose 151 mg/dl (70-99); Potassium 4.5 mmol/L (3.5-5.1); Sodium 136 mmol/L (135-145); eGFR > 60.00
[2023-11-26] MEDS: LASIX 40 MG IV (07:55)
[2023-11-26] MEDS: LOW STRENGTH ASPIRIN 81 MG PO (07:57)
[2023-11-26] MEDS: GLUCOPHAGE 500 MG PO (07:57)
[2023-11-26 07:58] VITALS: BP 136/82
[2023-11-26] MEDS: COLCHICINE 0.599999999999999978 MG PO (07:58)
[2023-11-26] MEDS: ZETIA 10 MG PO (07:58)
[2023-11-26] MEDS: JARDIANCE 10 MG PO (07:58)
[2023-11-26] MEDS: LIDOCAINE 4% PATCH TOPICAL (07:59)
[2023-11-26 08:06] LABS: Glucose - Point of Care 128 mg/dl (70-99)
[2023-11-26] MEDS: GLUCOTROL 5 MG PO (08:20)
[2023-11-26] MEDS: HEPARIN 5000 UNITS SC (08:22)
[2023-11-26] MEDS: NOVOLOG FLEXPEN-MODERATE RESISTANCE SC ×2 (08:26→12:51)
--- NOTE | 2023-11-26 08:28 | PN.DE.MGMTRT ---
Insulin Management
- -
11/25/2023: Diabetes Management Consult
Patient admitted with fatigue, dyspnea on exertion, acute chf. s/p cardiac cath 11/22. PMH HTN, type 2 diabetes. Prior to admission was taking glipizide 5 mg BID, metformin 500 mg BID Trulicity .75 Wednesday and Actos 30 mg daily. A1C on admission
7.0%.
All oral meds have been held, glucose has trended up to 200's. Lantus has been started.
With A1C of 7 will start Jardiance 10 mg, resume metformin and glipizide BID. Will NOT resume Actos, will stop Lantus. (Patient is adamant he will not take insulin at home). Patient has working glucose monitor at home. Will ask CM to check cost
of Jardiance and Farxiga.
11/26/2023: Diabetes Management F/U:
Pt was started on Jardiance 10mg and resumed his OP MFM and Glipizide. Glucose stable, FBG 151.
Will make no changes to current regimen.
Cont Glipizide 5 mg BID, Metformin 500 mg BID and Trulicity .75 Q Wednesday at discharge. Actos was discontinued
Pt states that he will not be able to start taking Farxiga or Jardiance because it is cost prohibitive.
He states that he will be seeing his PCP who's been managing his DM on Wednesday and that he will discuss it further with her
Diabetes History
- -
Type of Diabetes: 2
Pre-Admission Diabetes Regimen
11/25/23 11/26/23
09:03 03:50
Creatinine 0.9 1.0
Lab Results
Hemoglobin A1c 7.0 % (4.0-5.6) H 11/20/23 21:42
Insulin Pump Settings
IP Diabetes Regimen
11/25/23 11/25/23 11/25/23
08:29 09:03 12:14
Glucose 199 H
POC Glucose 155 H 196 H
11/25/23 11/25/23 11/26/23
17:36 22:42 03:50
Glucose 151 H
POC Glucose 218 H 202 H
11/26/23
08:05
Glucose
POC Glucose 128 H
Meal type: Dinner
Amount consumed: 100%
Patient Education
--- NOTE | 2023-11-26 09:11 | W.PN.PUL3 ---
Today's Communication / Plan
-
ct findings reviewed, no acute process
stable on ra, no new complaints
ok with discharge planning from out perspective
outpatient pulmonary fu recommended
we will sign off at this time, please call with questions
Assessment
-
Patient is a 68 year old M with PMH significant for HTN and DM-II presents to ED 11/20/23 complaining of generalized fatigue, WESLEY, weight gain and LE edema, developed acute on chronic SOB symptoms this AM with HR max 170s in AFib with RVR.� Had
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 patient found to have pericardial effusion with tamponade physiology and underwent
pericardial drain.� He continues to be managed in the ICU and critical care services on board for additional management/recommendations.
Acute pericardial effusion with tamponade physiology c/b cardiogenic shock s/p pericardiocentesis with drain placement - DDx of bloody fluid include trauma (fall recently ~1 week ago) vs URI (recent cold) with pericarditis
Acute onset unresponsiveness, never lost pulses/no arrest, resolved spontaneously
Afib with RVR -currently in NSR s/p pericardiocentesis with drain placement
WESLEY - due to above and his dyspnea has now resolved
LE edema - due to cardiogenic shock from pericardial effusion
Trace pleural effusion due to cardiogenic shock
Malaise/lightheadedness
ARMANDO - improving
Hyponatremia
Metabolic acidosis - resolved
Transaminitis
Hyperglycemia - resolved
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
HTN
Hypercholesterolemia
NIDDM
Bilateral hernia repair
Whately teeth
Obesity BMI 30.3
Plan
Patient has markedly improved since his pericardiocentesis with drain placement; remains on room air and is HDN stable in NSR
No longer in A-fib and he continues to be in NSR with rate controlled and dyspnea has also resolved --> no need to workup for PE as there is low suspicion for acute PE
Ongoing chest tightness/discomfort but this seems consistent with pericardial effusion post drainage and residual pain
Follow-up pericardial fluid studies including bacterial culture, fungus and AFB; follow up pleural fluid cytology as well
Repeat TTE for pericardial surveillance as per cardiology
Colchicine being started for suspected pericarditis as cause of his pericardial effusion
CXR reviewed with increased L sided effusion, IV diuresis continued per team
Ongoing lasix treatment
Follow daily weights
Cough evaluation can be done as OP with PFTs
CT chest discussed for reassurance, I do not think he needs IV contrast given recent ARMANDO, low risk for VTE
Reviewed and negative for acute findings
Sleep eval as OP recommended as well
Replete K>4, Mg>2, PO4>3
Maintain MAP>65
He is on room air --> keep SpO2 >90-94%
Neurology's been consulted given his episode of unresponsiveness during the INTERNATIONAL OPERATIONS MANAGER
EEG was obtained yesterday showing normal awake/drowsy EEG with no evidence of epileptiform activity or focal slowing.
Maintain euglycemia with goal BG 140-180mg/dL
Trend LFTs
Encouraged OOB/PT
DVT ppx
Diagnostic Data
Duplex 11/21/23: No evidence of deep venous thrombosis bilaterally.
CXR 11/20/23: IMPRESSION: Suspected tiny left pleural effusion.
CXR 11-22-2023: No acute disease of the chest
CT Pelvis 2016: IMPRESSION:
1. Skin thickening and subcutaneous inflammatory change within the left inguinal crease consistent with a cellulitis. No associated organized fluid collections.
2. Discogenic disease at L4-5.
Subjective Data
-
Date of Service:
Date of Service: November 26, 2023
Chief Complaint: Pulmonary Follow Up
Subjective:
patient seen and examined
no new complaints
stable on ra
Objective Data
Data Reviewed
Vital Signs / I&O / Oxygen:
Vital Signs
Temp Pulse Resp BP Pulse Ox
97.8 F 83 20 148/84 98
11/26/23 07:56 11/26/23 04:00 11/26/23 07:56 11/26/23 03:42 11/26/23 07:56
Intake and Output
11/25/23 11/26/23 11/27/23
06:59 06:59 06:59
Intake Total 800 / 800 240 / 240
Output Total 0 / 0
Balance 800 / 800 240 / 240
SaO2 98
Physical Exam
General: Comfortable and Other (NAD)
HEENT: Normocephalic, Anicteric and Moist Mucous Membranes
Cardiovascular: S1-S2 and Regular Rhythm
Respiratory: Clear and Non-Labored Respirations
GI: Soft, Non Distended and Non Tender
Neurology: Awake, Alert, Oriented, AO x 3 and No Motor Deficits
Skin: Warm, Dry and Good Color
Labs/Micro/Reports
Lab Data
11/25/23 09:03
11/26/23 03:50
Microbiology
11/22/23 11:41 Pericardial Fluid Body Fluid Culture - Final
No Growth After 72 Hours
11/22/23 11:41 Pericardial Fluid Gram Stain - Final
11/22/23 11:41 Pericardial Fluid Acid Fast Bacilli Smear - Preliminary
11/22/23 11:41 Pericardial Fluid Acid Fast Bacilli Culture - Preliminary
11/21/23 19:07 Nose MRSA Screen - Final
No Methicillin Resistant Staphylococcus aureus isolated.
--- NOTE | 2023-11-26 10:57 | W.PN.CARDCBS ---
Addendum entered and electronically signed by Cristofer Tran MD 11/26/23 12:16:
Overall he feels well.
Allergies none
Outpatient meds: Amlodipine benazepril, ezetimibe, glipizide metformin, metoprolol ER 50 mg a day, pioglitazone 30 mg a day, tamsulosin
Current meds: Finasteride 5 mg a day, tamsulosin 0.4 mg daily ezetimibe 10 mg daily, pantoprazole 40 mg daily, aspirin 81 mg daily, colchicine 0.6 mg a day, subcu heparin, furosemide 40 mg IV daily metformin 500 mg twice daily, Jardiance 10 mg a
day, glipizide 5 mg daily
PMH/PSH/SH/FH: Reviewed
Review of systems otherwise negative
136/82, pulse 87, respiratory 20, weight is 93.3 kg had been 95.8 kg and was 102.1 kg on admission
Head neck exam unremarkable, lungs relatively clear, JVD okay, regular rate and rhythm with probable very soft rub, abdomen benign, still 1+ edema
Potassium 4.5, sodium 136, sed rate 25, BUN 3 25, creatinine 1.0
Echo yesterday did not show substantial effusion
CT of chest abdomen pelvis: Nondisplaced eighth and ninth rib fractures, fatty liver, small effusions
Telemetry still with PVCs, PACs, no prolonged atrial arrhythmiaPotassium 4.5, sodium 136, sed rate 25, BUN 3 25, creatinine 1.0
CT of chest abdomen pelvis: Nondisplaced eighth and ninth rib fractures, fatty liver, small effusions
Impression:
From standpoint of CHF related to tamponade the is dramatically improved with effective diuresis following pericardiocentesis with drain. It is conceivable that Actos played a role in his pericardial effusion, though his effusion is likely
inflammatory. Stop Actos.
No further PAF at present though PVCs and some atrial arrhythmia are present. RhythmStar is in place. Resume metoprolol ER 50 mg a day
Treat pericarditis with colchicine
Blood pressure is reasonable, though amlodipine and benazepril currently on hold. Continue metoprolol. Most likely eventually will need to resume
He could be discharged from my view.
Recommended medications at discharge:
Aspirin 81 mg a day
colchicine 0.6 mg daily
furosemide 20 mg a day
Ezetimibe 10 mg a day
Metoprolol ER 50 mg a day
Hold amlodipine/benazepril for now, Likely need to restart as outpatient
Defer use of Jardiance/metformin/glipizide etc. to primary team
Stop Actos
Check BMP in 1 week, check echo in 2 weeks
We will arrange for cardiac follow-up
Original Note:
Today's Communication / Plan
-
Restart Toprol 50 mg daily.
Continue to hold benazepril amlodipine combination
Discharge home on Lasix 20 mg daily
Check CMP 1 week as outpatient
Outpatient echocardiogram scheduled for 12/03/2023
Sent home with real time rhythm star monitor
Outpatient cardiology follow-up has been arranged
Impression / Plan
-
PCP: Dr. Olya Suarez
Cardiology: None prior to admission, seen initially by Dr. Tran
Impression:
Presented 11/20/2023 with chest discomfort, dyspnea on exertion, weight gain
Newly diagnosed paroxysmal Afib with RVR 11/22/23
Rapid response for unresponsiveness and hypotension 11/22/23
Pericardial effusion with tamponade
s/p pericardiocentesis for 275 ml sanguinous fluid 11/22/23
Cardiogenic shock, CI 1.3 pre-pericardiocentesis and improved to 2.3 post-pericardiocentesis 11/22/23
ARMANDO on mild CKD
Elevated Troponin
Acute HFpEF
Hypertension
Hypercholesterolemia
Type 2 diabetes
Echo 11/22/23: EF 70-75%, RV small and under-filled and in some views appears to be compressed secondary to the pericardial effusion, respiratory variation across the mitral valve suggestive of tamponade physiology, moderate pericardial effusion
mostly over the RV with evidence of hemodynamic compromise and tamponade physiology
Echo 11/25/23: EF 55-60%, normal RV size and function, trace MR, no TR, trivial pericardial effusion
Plan:
-Presented 11/20/2023 with chest discomfort, dyspnea on exertion, weight gain
Pericardial effusion w/ tamponade
-He had a rapid response 11/22/23, he was in rapid Afib and given Lopressor IV then had unresponsiveness for a few seconds and then awoke, but was persistently hypotensive. Patient had an urgent bedside echo and as noted above had evidence of
pericardial effusion with tamponade physiology. Patient had urgent pericardiocentesis for 275 ml sanguinous fluid.
-Patient was on a Heparin gtt at the time of pericardial effusion, this was for possible PE. Heparin gtt was stopped and then briefly restarted with pericardial drain in place but ultimately stopped again 11/23/23 due to ongoing bloody drainage. Will
not anticoagulate at this time due to sanguinous pericardial effusion.
-No recurrence of pericardial effusion on repeat echo 11/25/23. Drain removed. Repeat echo scheduled as outpatient for 12/03/23
-Weight down 6 lbs overnight and down 14 lbs this admission. Continue Lasix 40 mg IV daily. Would send home on Lasix 20 mg daily. Add tubigrips for increased LE edema.
-EF preserved by echo 11/25/23.
-Pathology reviewed with patient and there was no evidence of malignancy. Fluid was bloody. He is not a candidate for OAC at that time. Rheumatology labs ordered 11/25/23, ESR 25, CRP 31.40. Rheumatoid Factor and ALEXIS pending.
-CT of chest abdomen pelvis performed 11/25/2023 which demonstrated nondisplaced acute lateral left eighth and ninth rib fractures. Possibly this could be because of pericardial effusion.
-Started colchicine 0.6 mg BID on 11/23/23. Reviewed with pharmacist and reduced to 0.6 mg daily on 11/24/23.
Atrial fibrillation w/ RVR
-Spontaneously converted to SR and remains in SR now. ECG 11/25/2023 NSR w/ NS T wave abnormality, QTc 469 ms
-Now having runs of NSVT with multifocal couplets and triplets on tele
-K+ 4.5, check mag
-Restart Toprol at 50 mg (was outpt dose)
-No plan of OAC at this time due to bloody pericardial effusion
-14 day real time Rhythm Star monitor applied for close monitoring as outpt w/ recurrence of PAF and ventricular arrhythmias
History of hypertension. Previously was on amlodipine/benazepril and Toprol as outpatient. Blood pressure has improved. Would continue to hold amlodipine/benazepril combination and sent home on Toprol 50 mg which was outpatient dosing.
abnormal LFTs trending down and due to cardiogenic shock
Abnormal Troponin peaked at 0.045 and likely non-ischemic myocardial injury due to cardiogenic shock at time of pericardial tamponade
HPI: 68-year-old man who is developed generalized fatigue, WESLEY, edema and weight gain over the course of several days.� His weight is up about 12 pounds.� He is also had some left-sided chest climbing stairs yesterday.� His son says he has not been
well since he fell striking the left side of his body about a month ago.� He has lower extremity edema left greater than right.� His dyspnea was notable about a week ago, and also with bending over.� He is only had 1 episode of chest discomfort.� No
history of phlebitis.
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
Subjective
Date of Service: November 26, 2023
Patient seen and examined. Patient reports he is feeling well. Able to ambulate around the unit without shortness of breath, dizziness or lightheadedness. Still has some left-sided rib pain worse when he coughs. Patient is eager to go home
Objective
Labs:
11/25/23 09:03
11/26/23 03:50
Labs
Hgb 13.6 g/dL (13.0-18.0) 11/25/23 09:03
Hct 39.5 % (39.0-52.0) 11/25/23 09:03
Plt Count 395 10^3/uL (130-400) 11/25/23 09:03
PT 16.2 Sec (11.4-14.6) H 11/22/23 09:55
INR 1.31 11/22/23 09:55
APTT 66.8 Sec (23.4-35.0) H 11/23/23 07:26
Sodium 136 mmol/L (135-145) 11/26/23 03:50
Potassium 4.5 mmol/L (3.5-5.1) 11/26/23 03:50
BUN 25 mg/dl (9-20) H 11/26/23 03:50
Creatinine 1.0 mg/dL (0.7-1.3) 11/26/23 03:50
Glucose 151 mg/dl (70-99) H 11/26/23 03:50
Vital Signs and I&O:
Vital Signs
Temp Pulse Resp BP Pulse Ox
97.8 F 87 20 136/82 98
11/26/23 07:56 11/26/23 08:00 11/26/23 07:56 11/26/23 07:58 11/26/23 07:56
Vital Signs
Temp Pulse Resp BP Pulse Ox
97.8 F 87 20 136/82 98
11/26/23 07:56 11/26/23 08:00 11/26/23 07:56 11/26/23 07:58 11/26/23 07:56
Intake & Output
11/24/23 11/25/23 11/26/23 11/27/23
06:59 06:59 06:59 06:59
Intake Total 745 / 745 800 / 800 240 / 240
Output Total 350 / 350 0 / 0
Balance 395 / 395 800 / 800 240 / 240
Physical Exam
Physical Exam
GEN: No distress, awake, Ox3, sitting up in chair
HEENT: supple, anicteric, mmm
LUNGS: Mildly decreased at bases otherwise CTA, no wheezes/rales
CV: Reg, S1/S2, no murmur, rub or gallop
ABD: soft, BS+, NT/ND
EXT: +1 lower extremity edema, no clubbing or cyanosis
NEURO: Gross non-focal
SKIN: No rash, warm, dry, pink
[2023-11-26 11:52] VITALS: BP 136/92
[2023-11-26 11:57] LABS: Magnesium 2.1 mg/dl (1.6-2.3)
--- NOTE | 2023-11-26 12:04 | W.PN.HOSP.TC ---
Today's Communication/Plan
-
Discharge today
Assessment / Plan
Assessment / Plan
Physical Exam
Gen-AAOx3, NAD
HEENT-NC, AT, anicteric, clear oral mm
Neck-supple
CV-reg, no M, +S1/S2
Lungs-CTAB
Abd-soft, NT, ND
Ext-no edema
Musculoskeletal-no cyanosis. 1+ edema bilaterally
Skin-warm and dry
Neuro-grossly non-focal
Psych-calm, cooperative
Assessment/Plan
Chest pressure
Cardiac Tamponade
Possible Pericarditis
Pericardial effusion with tamponade s/p pericardiocentesis for 275 ml sanguinous fluid 11/22/23
Cardiogenic Shock
Bilateral Pleural Effusions
Dyspnea on Exertion
Lower Extremity Edema
Lightheadedness, worsening chest tightness and rapid heart heart rate on November 22, 2023 Morning (rapid response for unresponsiveness and hypotension 11/22/23)
Unresponsiveness (vagal vs TIA vs PE vs cardiac tamponade) - RESOLVED SPONTANEOUSLY - on November 22, 2023 Morning
Decorticate Posturing - RESOLVED - on November 22, 2023 Morning
-On November 22, 2023, patient had atrial fibrillation with RVR followed shortly after by an acute episode of unresponsiveness with decorticate posturing, but never actually lost pulses: Code 9 was initially called but subsequently amended to Rapid
Response Team.
-Transferred (on 11/23/23) patient to ICU; now he is in IVU
-Echocardiogram showed, as per cardiology: 'evidence of pericardial tamponade with respiratory variation and moderate to severe circumferential pericardial effusion'
-Tamponade with associated hypotension was present, patient received IV fluids
-Pericardiocentesis was performed with bloody pericardial drainage - with 275 cc of serosanguineous pericardial fluid output
-Because of bloody pericardial drainage, Heparin Drip being stopped, no anticoagulation at this time: anticoagulation will be revisited outpatient with cardiology
-Pericardial drain was discontinued on 11/24/23
-Echocardiogram was rechecked on 11/25/23 - with Trivial Pericardial Effusion, as per carboy filler's report
-Neurology consulted, recommendations appreciated
-Appreciate cardiology recommendations
-Continue Colchicine 0.6 mg daily (if Amiodarone is started, the dose of Colchicine will need to be reduced)
-Continue Lasix 20 mg daily on discharge
-Patient still has chest tightness and soreness on his left lower chest/left upper flank area: due to his recent fall, discussed case with prison warden and CT imaging has been ordered for chest, abdomen and pelvis
-Outpatient echo scheduled in 1-2 weeks, and patient has cardiology follow-up
-Review with pulmonary: no need to workup for pulmonary embolism as there is low suspicion for acute pulmonary embolism
-Follow-up on pericardial fluid studies
Cough
Nondisplaced acute lateral left eighth and ninth rib fractures on CT Imaging
Mild bibasilar consolidation
-CT Chest imaging was ordered, results noted
-Monitor temperatures, white count
Newly Diagnosed Paroxysmal Atrial Fibrillation with RVR on 11/22/23 - RESOLVED
Hypotension
History of Hypertension
Runs of Non-Sustained Ventricular Tachycardia with multifocal couplets and triplets
Cardiogenic Shock Secondary to Pericardial Tamponade
-Aspirin 81 mg daily on discharge
-AFib possibly secondary to possible pericarditis
-Cardizem drip was initially ordered, but later held due to hypotension and heart rate improved
-No anticoagulation at this time due to bloody pericardial effusion
-Continue home Toprol XL 50 mg daily
-Continue to hold amlodipine benazepril combination
-14 day real time Rhythm Star monitor applied for close monitoring as outpt
Elevated AST - IMPROVING
Elevated ALT - IMPROVING
Hepatic fatty infiltration on CT Imaging
-Suspected secondary to cardiogenic shock
-Trending: improving
Acute Kidney Injury - RESOLVED - AKIN inhibitor will be held on discharge. Recheck CMP and magnesium in 1 week (to recheck patient's renal function, electrolytes and liver function)
Hyponatremia - due to hyperglycemia. Will consider consulting nephrology.
DM2 with hyperglycemia -hemoglobin A1c 7.0%. Diabetes ELECTRONIC SCIENCE TEACHER consulted: start Jardiance 10 mg, resume metformin and glipizide BID.
STOP Actos on discharge, no Insulin at home.
Hypercholesterolemia
Bilateral adrenal masses on CT Imaging
-Needs to have close follow-up outpatient
-Endocrinology referral on discharge
Benign Prostatic Hyperplasia
Mild diffuse bladder wall thickening on CT Imaging
-Urology follow-up on discharge
Mild diverticulosis on CT imaging
Obesity due to excess calories
Full code
On November 22, 2023, I spoke to patient's Dana and updated her on patient's medical condition and the events leading to patient's transfer to ICU.
On November 25, 2023, I spoke to patient's Dana (via patient's phone which was on speaker phone) and updated her on patient's medical condition and discussed CT imaging.
On November 26, 2023, I spoke to patient's Dana (via patient's phone which was on speaker phone) and updated her on patient's medical condition and discussed CT imaging results.
More than 30 minutes spent in discharge including
Final examination of the patient
Summarizing hospital stay
Instructions for continuing care to all relevant caregivers
Preparation of discharge records, prescriptions, and referral forms
Total time spent (in minutes): 45
Anticipated Discharge: Today
Subjective/Interval History
-
Date of Service: November 26, 2023
Patient was seen and examined. He reported some soreness on the left lower side of his chest which has been improving, and also chest tightness which is still there. He denied any other new, significant symptoms.
Objective Data
-
Labs:
Laboratory Results
11/26/23
03:50
Sodium 136
Potassium 4.5
Chloride 98
Carbon Dioxide 31 H
BUN 25 H
Creatinine 1.0
Glucose 151 H
Calcium 8.6
Vital Signs:
Vital Signs
Temp Pulse Resp BP Pulse Ox
97.8 F 87 20 136/82 98
11/26/23 07:56 11/26/23 08:00 11/26/23 07:56 11/26/23 07:58 11/26/23 07:56
I&O
11/25/23 11/26/23 11/27/23
06:59 06:59 06:59
Intake Total 800 / 800 240 / 240
Output Total 0 / 0
Balance 800 / 800 240 / 240
[2023-11-26 12:12] VITALS: BP 136/92; PULSE 96
[2023-11-26 12:49] LABS: Glucose - Point of Care 108 mg/dl (70-99)
--- NOTE | 2023-11-26 12:56 | CM ---
CM met w/ patient, spouse at bedside.
Patient is anticipating DC to home today.
He has declined Jardiance/Farxiga at this time after discussion w/ Import Export Agent.
I have placed coupons for free 30 day, 14 day trial in patient's chart in the event that he decides to use this medication after discussing with PCP.
Plan is for home without any identified DC needs.
--- NOTE | 2023-11-26 16:24 | W.DS.TRANS ---
DC Summary - Mononitrotoluene Operator
-
Discharge Instructions:
Discharge Diagnosis/Procedures Chest pressure
Cardiac Tamponade
Possible Pericarditis
Pericardial effusion with tamponade status post
pericardiocentesis for 275 ml sanguinous fluid 2
Cardiogenic Shock
Bilateral Pleural Effusions
Dyspnea on Exertion
Lower Extremity Edema
Lightheadedness, worsening chest tightness and
rapid heart heart rate on November 22, 2023
Morning (rapid response for unresponsiveness and
hypotension 11/22/23)
Unresponsiveness (vagal vs TIA vs PE vs cardiac
tamponade) - RESOLVED SPONTANEOUSLY - on
November 22, 2023 Morning
Decorticate Posturing - RESOLVED - on November
2023 Morning
Cough
Nondisplaced acute lateral left eighth and ninth
rib fractures on CT Imaging
Mild bibasilar consolidation
Newly Diagnosed Paroxysmal Atrial Fibrillation
with Rapid Ventricular Response on 11/22/23 -
RESOLVED
Hypotension
History of Hypertension
Runs of Non-Sustained Ventricular Tachycardia
with multifocal couplets and triplets
Cardiogenic Shock Secondary to Pericardial
Tamponade
Elevated AST on labwork - IMPROVING
Elevated ALT on labwork - IMPROVING
Hepatic fatty infiltration on CT Imaging
Acute Kidney Injury - RESOLVED
Hyponatremia
Type 2 Diabetes Mellitus
Hypercholesterolemia
Bilateral adrenal masses on CT Imaging
Benign Prostatic Hyperplasia
Mild diffuse bladder wall thickening on CT
Imaging
Mild diverticulosis on CT imaging
Obesity due to excess calories
Diet Diabetic, Carb Controlled
Activity As tolerated
Driving Restrictions Not until seen by your Dr
Blood Work Comprehensive metabolic panel at [facility] in 1
week. Order provided
Instructions:
Stand-Alone Forms:
Changes to Home Medications: Yes
Discharge Medications:
DC Medications w/original date entered in [facility]
ezetimibe 10 mg tablet 10 mg PO DAILY High Cholesterol 07/29/16
metoprolol succinate 50 mg tablet,extended release 24 hr 50 mg PO DAILY Blood Pressure 07/29/16
omeprazole 40 mg capsule,delayed release 40 mg PO QPM Gastrointestinal Issue 07/29/16
glyburide 5 mg-metformin 500 mg tablet 1 tab PO BID ##0 08/01/16
amlodipine 5 mg-benazepril 20 mg capsule 1 cap PO DAILY Blood Pressure 11/20/23
dulaglutide 0.75 mg/0.5 mL subcutaneous pen injector (Trulicity) 0.75 mg SC HARLEY Diabetes 11/20/23
finasteride 5 mg tablet 5 mg PO QPM Urinary Issue 11/20/23
tamsulosin 0.4 mg capsule (Flomax) 0.4 mg PO QPM Urinary Issue 11/20/23
aspirin 81 mg chewable tablet (Children's Aspirin) 81 mg PO DAILY #30 tabs 11/26/23
colchicine 0.6 mg tablet 0.6 mg PO DAILY #30 tabs 11/26/23
empagliflozin 10 mg tablet (Jardiance) 10 mg PO DAILY #30 tabs 11/26/23
furosemide 20 mg tablet 20 mg PO DAILY #30 tabs 11/26/23
Home Medication Changes
New medications include Aspirin, Colchicine, Furosemide, Jardiance
Hold Amlodipine-Benazepril
Stopped Azithromycin and Actos
Pending Results: Yes
Additional Pending Results:
Follow-up studies from pericardial fluid
Total time spent discharging patient (in min): 45
[2023-11-26] MEDS: HEPARIN SC (17:22)
[2023-11-28 01:26] LABS: Coxsackie A9 <1:8 (<1:8)
[2023-11-28 07:55] LABS: ANA, IgG Reflex to HEp-2 None Detected (None Detected)
--- NOTE | 2023-11-28 10:13 | W.DCSUMMARY ---
Addendum entered and electronically signed by Anthony Groves MD 11/29/23 18:14:
Correction to the Discharge Date: 'Date of Discharge: 11/26/23'
Original Note:
Discharge Summary
Discharge Data
Date of Admission: 11/20/23
Date of Discharge: 11/29/23
Total time spent discharging patient (in min): 45
-
Pending Results: Yes
Additional Pending Results:
Follow-up studies from pericardial fluid
Hospital Course
68 y/o male with past medical history of recent fall about 1 to 1.5 months prior to presentation, Diabetes Mellitus and Hypertension, presented to the [facility] Emergency Department complaining of generalized fatigue, dyspnea with
activity, weight gain and edema; he reported that these symptoms were progressive over the past several days to a week or two. Patient also had weight gain. He also reported chest pain and shortness of breath while climbing stairs. Patient was
started on intravenous Lasix, echocardiogram was ordered and cardiology was consulted. Pulmonary embolism was a concern, but CT imaging of the chest with contrast could not be done due to patient's acute kidney injury; and V/Q scan was unable to be
done over the weekend. Heparin Drip was ordered in the meantime due to concerns of possible pulmonary embolism. Rapid Response was called on November 22, 2023 as patient was reporting dizziness and chest tightness and developed atrial fibrillation
with rapid ventricular response, intravenous Lopressor was given, intravenous cardizem was also ordered for rate control of atrial fibrillation, a Code 9 was then called as patient became unresponsive with both of his hands on his chest and elbows
and arms flexed. Later Code 9 was amended to a Rapid Response as it was determined that patient was not in cardiac arrest. Patient was transferred to the intensive cardiac unit.
Patient developed cardiac tamponade with associated hypotension. His Cardizem was then held. Patient received intravenous fluids bolus. Echocardiogram was done, and it showed, a per bus washer's report:
'CONCLUSIONS
1. Technically difficult study.
2. Left ventricle appears to be normal in size with hyperdynamic LV systolic
function with near obliteration of LV cavity. Estimated LVEF is 70 to 75% by
visual estimation. Wall motion analysis is limited by the image quality.
3. Right ventricular cavity appears small in size and under-filled. In
limited views there appears to be compression of the RV secondary to the
pericardial effusion.
4. Respiratory variation across the mitral valve suggestive of tamponade
physiology. No obvious right atrial collapse.
5. No significant valvular abnormalities noted in limited views.
6. Moderate pericardial effusion, mostly over the right ventricle with
evidence of hemodynamic compromise and tamponade physiology.
7. The IVC is dilated and does not collapse.'
Neurology was consulted due to patient's episode of unresponsiveness but it was determined that patient's syncope was likely due to his cardiac tamponade. On November 22, 2023, patient had, as per cardiology, 'Successful pericardiocentesis via
trans-apical approach under echocardiographic guidance with 275 cc of serosanguineous pericardial fluid output.' Pericardial drain was placed. Patient's Heparin Drip was held before the procedure - later on in the hospitalization, his Heparin Drip
continued to be held later on due to blood in his pericardial fluid. Patient was started on colchicine. Patient's pericardial drain was removed on November 24, 2023.
Patient's pericardial fluid pathology showed no malignant cells, but showed occasional benign mesothelial cells with blood and mixed inflammatory cells in the background.
Patient cardiac rhythm converted to normal sinus rhythm.
Patient was placed on a manager monitoring on discharge to make sure his atrial fibrillation was not recurrent. Patient was found to have bilateral pleural effusion and Lasix was ordered. Diabetes Nurse Practitioner was consulted and the decision was
made not resume patient's Actos on discharge. CT Chest, Abdomen and Pelvis was done (given patient's cough, chest soreness and trauma about a month or two prior) and it showed 'Nondisplaced acute lateral left eighth and ninth rib fractures,' among
other findings (please see CT Chest Abdomen Pelvis official radiologist's report). Patient was stable for discharge with close outpatient follow-up.
Discharge Plan
-
Patient Disposition: Home (Routine Discharge)
Discharge Diagnosis/Procedures: Chest pressure
Cardiac Tamponade
Possible Pericarditis
Pericardial effusion with tamponade status post pericardiocentesis for 275 ml sanguinous fluid 11/22/23
Cardiogenic Shock
Bilateral Pleural Effusions
Dyspnea on Exertion
Lower Extremity Edema
Lightheadedness, worsening chest tightness and rapid heart heart rate on November 22, 2023 Morning (rapid response for unresponsiveness and hypotension 11/22/23)
Unresponsiveness (vagal vs TIA vs PE vs cardiac tamponade) - RESOLVED SPONTANEOUSLY - on November 22, 2023 Morning
Decorticate Posturing - RESOLVED - on November 22, 2023 Morning
Cough
Nondisplaced acute lateral left eighth and ninth rib fractures on CT Imaging
Mild bibasilar consolidation
Newly Diagnosed Paroxysmal Atrial Fibrillation with Rapid Ventricular Response on 11/22/23 - RESOLVED
Hypotension
History of Hypertension
Runs of Non-Sustained Ventricular Tachycardia with multifocal couplets and triplets
Cardiogenic Shock Secondary to Pericardial Tamponade
Elevated AST on labwork - IMPROVING
Elevated ALT on labwork - IMPROVING
Hepatic fatty infiltration on CT Imaging
Acute Kidney Injury - RESOLVED
Hyponatremia
Type 2 Diabetes Mellitus
Hypercholesterolemia
Bilateral adrenal masses on CT Imaging
Benign Prostatic Hyperplasia
Mild diffuse bladder wall thickening on CT Imaging
Mild diverticulosis on CT imaging
Obesity due to excess calories
Condition: Good
Diet: Diabetic, Carb Controlled
Activity: As tolerated
Driving Restrictions: Not until seen by your Dr
Blood Work: Comprehensive metabolic panel at [facility] in 1 week. Order provided
Activity Restrictions/Additional Instructions:
-You are scheduled for a repeat echocardiogram to re-evaluate for pericardial effusion on 12/03/23 at 11:30 AM at the Cardiac Services Department at [facility]. Please arrive 10 minutes early to register in the main lobby.
-The cardiology office is arranging for a 14 day manager monitoring to be placed when you go home. If you leave Wednesday or Wednesday then the monitor will be placed before you leave. If you leave over the weekend then the cardiology office will call you to
arrange for the monitor to be placed in the office early next week.
Referrals:
Kin Tompkins MD [Active] - in four to six weeks (Review MAYTE risk factors and discuss obtaining a sleep study)
Cisco Dasilva MD [Active] - in two to three weeks
(Benign Prostatic Hyperplasia
Mild diffuse bladder wall thickening on CT Imaging)
Summer Ponce MD [Consulting Staff] - in two to three weeks (Bilateral adrenal masses on CT Imaging)
Olya Suarez MD [Family Provider] - in less than 1 week
Perla Tsai MD [Active] - 12/13/23 11:00 am (You have an appt to see Dr. Tsai at the [place] office on 12/13/23 at 11 AM. Please call [phone] if you need to reschedule.)
Prescriptions:
New
colchicine 0.6 mg Tablet
0.6 mg PO DAILY Qty: 30 2RF
Jardiance 10 mg Tablet
10 mg PO DAILY Qty: 30 1RF
furosemide 20 mg Tablet
20 mg PO DAILY Qty: 30 1RF
aspirin [Children's Aspirin] 81 mg Tablet,Chewable
81 mg PO DAILY Qty: 30 1RF
Continued
metoprolol succinate 50 MG tablet extended release 24 hr
50 mg PO DAILY
omeprazole 40 MG capsule,delayed release(DR/EC)
40 mg PO QPM
ezetimibe 10 MG tablet
10 mg PO DAILY
glyburide-metformin 5 MG/500 MG tablet
1 tab PO BID Qty: 0 0RF
tamsulosin [Flomax] 0.4 mg Capsule
0.4 mg PO QPM
finasteride 5 mg Tablet
5 mg PO QPM
Trulicity 0.75 mg/0.5 mL Pen Injector
0.75 mg SC HARLEY
Held
amlodipine-benazepril 5-20 mg Capsule
1 cap PO DAILY
Hold Instructions: Resume on 12/17/23. Discuss with bus washer and primary care physician before resuming this medication.
Discontinued
azithromycin 250 mg Tablet
0 mg PO .COMPLEX
Patient Comments:
PATIENT MANAGER WORKERS COMPENSATION ON 11/18/23
Rx Instructions:
For 250 mg dose pack: take 500 mg today (day 1), then 250 mg for 4 days (days 2-5)
pioglitazone [Actos] 30 mg Tablet
30 mg PO DAILY
Discharge Orders:
Discharge Patient (As Directed); Ordered 11/26/23
Ordered By: Anthony Groves
Care Plan Goals
Care Plan Goals:
Problem: Readiness for enhanced knowledge related to diagnosis and treatment plan
Goal: Understand your diagnosis and treatment plan needs, including medications if applicable.
Instructions: Know your diagnosis, underlying causes and treatment plan options, including medications if applicable. Consult with your health care team to learn about your diagnosis and treatment plan, including medications if applicable.
Discharge Date and Time
Discharge Date/Time: 11/26/23 17:25
[2023-12-01 18:36] LABS: Coxsackie B1 <1:10 (<1:10); Coxsackie B2 <1:10 (<1:10); Coxsackie B3 1:20 (<1:10); Coxsackie B4 <1:10 (<1:10); Coxsackie B5 <1:10 (<1:10); Coxsackie B6 <1:10 (<1:10)
== END 2023-11-26 17:25 | disposition home or self-care (01) | DRG 286 ==
LOC: IVU 21:14
PROVIDERS: Hospitalist; Internal Medicine Cardiovascular Disease; Internal Medicine Critical Care Medicine; Internal Medicine Interventional Cardiology; Nurse Practitioner; Physician Assistant Medical; ADMITTING PHYSICIAN Hospitalist; ATTENDING PHYSICIAN Hospitalist; CONSULT PHYSICIAN Internal Medicine; CONSULT PHYSICIAN Internal Medicine Cardiovascular Disease; CONSULT PHYSICIAN Psychiatry & Neurology Neurology; EMERGENCY PHYSICIAN Emergency Medicine; FAMILY PHYSICIAN Family Medicine
PROC: 0W9D3ZZ Drainage of Pericardial Cavity, Percutaneous Approach (ICD-10-PCS; 2023-11-22)
PROC: 4A023N6 Measurement of Cardiac Sampling and Pressure, Right Heart, Percutaneous Approach (ICD-10-PCS; 2023-11-22)
DX: I48.0 Paroxysmal atrial fibrillation (principal); R57.0 Cardiogenic shock; I31.4 Cardiac tamponade; E87.1 Hypo-osmolality and hyponatremia; I13.0 Hypertensive heart and chronic kidney disease with heart failure and stage 1 through stage 4 chronic kidney disease, or unspecified chronic kidney disease; E87.20 Acidosis, unspecified; N17.9 Acute kidney failure, unspecified; I31.39 Other pericardial effusion (noninflammatory); I50.9 Heart failure, unspecified; N18.2 Chronic kidney disease, stage 2 (mild); E78.00 Pure hypercholesterolemia, unspecified; E11.22 Type 2 diabetes mellitus with diabetic chronic kidney disease; N40.0 Benign prostatic hyperplasia without lower urinary tract symptoms; Z11.52 Encounter for screening for COVID-19; I48.91 Unspecified atrial fibrillation; E11.65 Type 2 diabetes mellitus with hyperglycemia; K21.9 Gastro-esophageal reflux disease without esophagitis; E66.9 Obesity, unspecified; Z68.30 Body mass index [BMI] 30.0-30.9, adult; I20.9 Angina pectoris, unspecified
CPT/HCPCS: 88305; 93308; 33016; 71045; 71046; 71250; 74176; 80048; 80053; 82248; 82550; 82945; 82962; 83036; 83605; 83615; 83735; 83880; 84100; 84157; 84443; 84484; 85014; 85025; 85027; 85379; 85610; 85652; 85730; 86038; 86140; 86430; 86658; 86803; 87015; 87070; 87102; 87116; 87205; 87206; 87811; 88112; 89051; 93005; 93306; 93321; 93325; 93451; 93970; 95816; 96374; 97162; 97166; 99285; C1894

== ENCOUNTER → 2023-12-03 11:13 | Outpatient (REF) | payer MEDICARE, SELFPAY | LOC: RCS 11:13 | PROVIDERS: ATTENDING PHYSICIAN Internal Medicine Interventional Cardiology; FAMILY PHYSICIAN Family Medicine | DX: I31.39 Other pericardial effusion (noninflammatory) (principal) | CPT/HCPCS: 93308 ==

== ENCOUNTER → 2023-12-24 07:28 | Outpatient (REF) | payer MEDICARE, SELFPAY | LOC: RCS 07:28 | PROVIDERS: ATTENDING PHYSICIAN Internal Medicine Interventional Cardiology; FAMILY PHYSICIAN Family Medicine | DX: I48.0 Paroxysmal atrial fibrillation (principal); I31.39 Other pericardial effusion (noninflammatory) | CPT/HCPCS: 78452; 93017; A9500 ==

== ENCOUNTER → 2024-02-15 | Outpatient (REF) | payer MEDICARE, SELFPAY | LOC: DHSLP | PROVIDERS: ATTENDING PHYSICIAN Internal Medicine; FAMILY PHYSICIAN Family Medicine | DX: G47.30 Sleep apnea, unspecified (principal); R06.83 Snoring | CPT/HCPCS: 95800 ==

== ENCOUNTER → 2024-02-18 12:54 | Outpatient (REF) | payer MEDICARE, SELFPAY | LOC: RCS 12:54 | PROVIDERS: ATTENDING PHYSICIAN Internal Medicine Interventional Cardiology; FAMILY PHYSICIAN Family Medicine | DX: I48.0 Paroxysmal atrial fibrillation (principal); I31.39 Other pericardial effusion (noninflammatory) | CPT/HCPCS: 93308 ==

== ENCOUNTER → 2024-05-19 14:46 | Outpatient (REF) | payer MEDICARE, SELFPAY | LOC: RCS 14:46 | PROVIDERS: ATTENDING PHYSICIAN Internal Medicine Interventional Cardiology; FAMILY PHYSICIAN Family Medicine | DX: I31.39 Other pericardial effusion (noninflammatory) (principal); I50.30 Unspecified diastolic (congestive) heart failure; R06.02 Shortness of breath | CPT/HCPCS: 93306 ==

== ENCOUNTER → 2024-05-23 08:57 | Outpatient (REF) | payer MEDICARE, SELFPAY | LOC: RAD 08:57 | PROVIDERS: ATTENDING PHYSICIAN Internal Medicine Interventional Cardiology; FAMILY PHYSICIAN Family Medicine | DX: I48.0 Paroxysmal atrial fibrillation (principal); I50.30 Unspecified diastolic (congestive) heart failure; R07.89 Other chest pain; R06.09 Other forms of dyspnea | CPT/HCPCS: 75574; Q9967 ==

== ENCOUNTER 2024-06-20 09:54 | Day surgery (SDC) | payer MEDICARE, SELFPAY ==
[2024-06-20] VITALS (11 sets, daily range): BP systolic 102–156; BP diastolic 45–82
[2024-06-20] MEDS: NSS 1000 IV ×2 (10:26→13:17)
[2024-06-20 10:34] LABS: Glucose - Point of Care 193 mg/dl (70-99)
[2024-06-20 12:15] LABS: ACT-LR - POC 256 Seconds (116-155)
[2024-06-20 12:24] LABS: ACT-LR - POC 269 Seconds (116-155)
[2024-06-20 12:38] LABS: ACT-LR - POC 282 Seconds (116-155)
[2024-06-20 13:17] LABS: Glucose - Point of Care 205 mg/dl (70-99)
[2024-06-20] MEDS: LASIX 20 MG IV (13:17)
[2024-06-20] MEDS: GLUCOTROL 5 MG PO (13:28)
[2024-06-20] MEDS: IMDUR (EXTENDED RELEASE) 30 MG PO (13:28)
--- NOTE | 2024-06-20 15:17 | ITS.CL.CATH ---
Gang Punch Operator - Catheterization
Cardiac Catheterization
Procedure Report:
LEFT AND RIGHT HEART CATHETERIZATION
Date of Procedure: June 20, 2024
Referring: Perla Tsai MD, [facility], [facility]
PROCEDURES:
1. Left heart catheterization, coronary angiogram.
2. Right heart catheterization.
3. Ultrasound-guided access
INDICATION: Ongoing dyspnea on exertion with prior history of cardiogenic shock in November 2023 secondary to cardiac tamponade status post pericardiocentesis, mild troponin elevation with multiple cardiovascular risk factors including hypertension,
type 2 diabetes mellitus, hyperlipidemia with fixed basal to mid inferior defect on recent stress testing and elevated calcium score with concern for moderate to severe plaque in the mid LAD now being referred for a left and right heart
catheterization
ACCESS:
1. Right radial artery, 6 [place] sheath, under ultrasound guidance.
2. Right brachial vein, 6 [place] sheath.
HEMODYNAMICS : (mmHg)
RA (m) : 14
RV (s/d,m) : 29/9, 14
PA (s/d, m) : 30/11, 20
PCWP (m) : 17
PA saturation: 72.7% on room air
AO saturation: 91.9% on room air
SVC saturation: 74.9% on room air
Cardiac Output : 6.24 L/min
Cardiac Index : 2.99 L/min/m-2
Systemic vascular resistance: 885 dsc^(-5)
Pulmonary vascular resistance: 0.96 ontiveros unit
AO (s/d) : 109/63
LV (s/d) : 109/10
LVEDP : 18
Heart rate is 73 bpm
CORONARY FINDINGS
DOMINANCE: Right
LEFT MAIN: The left main artery is a large-caliber vessel which gives rise to the left anterior descending artery and the left circumflex artery. Angiographically normal vessel.
LEFT ANTERIOR DESCENDING: The left anterior descending artery is a medium to large caliber vessel which gives rise to multiple small to medium caliber diagonal branches as it courses through the anterior interventricular groove and towards the apex
1. There are 2 serial 50 to 60% stenoses in the mid LAD distal to the first diagonal branch. iFR was performed across these lesions which was negative at 0.94.
CIRCUMFLEX: The left circumflex artery is a medium caliber vessel which gives rise to 1 major obtuse marginal branch. There is minimal luminal irregularities.
RIGHT CORONARY ARTERY: The right coronary artery is a large-caliber, dominant vessel which gives rise to the right posterior descending artery and the right posterolateral system. There is minimal luminal irregularities
HEMODYNAMIC ASSESSMENT OF THE MID LAD WITH A VERRATA WIRE: The origin of the left coronary artery was cannulated with a 6 Fr EBU 3.5 guide catheter. Intravenous heparin was administered and the ACT was followed during the procedure. Two hundred
micrograms of intracoronary nitroglycerin was given through the guide catheter. A VERRATA wire was advanced to the guide catheter tip and normalized just outside the guide catheter tip. The VERRATA wire was then carefully manipulated across the
stenosis in the mid with the iFR above the ischemic threshold measuring 0.94. The VERRATA wire was then pulled back to the guide catheter where the Pd/Pa measured 1.0 confirming no baseline drift in pressure readings. Of note initially for sore we
used also noted IFR above the ischemic threshold serially measuring 0.95, 0.96 and 0.97 however upon pullback to the guide catheter, significant drift was noted despite manipulating this and re-normalizing multiple times, we could not get the wire
to function well and therefore a second wire was introduced.
SEDATION: 75 minutes of procedural sedation was utilized. An independent medical reviewer was present to assist with and help manage the patient's level of consciousness and physiologic status.
RADIATION SUMMARY: Fluoro Time (min): 15.4, Dose (mGy): 594.5, DAP (Gy.cm2) : 41.5
Closure Device:
1. Vascular band over right radial artery, 10 cc of air.
2. Manual pressure was held over the right brachial venous access site with successful hemostasis.
CONCLUSIONS
1. Moderate coronary artery disease in the mid LAD with 2 serial 50 to 60% IFR negative stenoses (iFR 0.94).
2. Otherwise no obstructive coronary artery disease.
3. Mildly elevated right and left-sided filling pressures with normal cardiac output.
4. Upon contrast dye injection prominent ST-T wave changes were noted suggestive of possible microvessel spasm.
5. Simultaneous LV and RV invasive pressure measurements were also obtained with no obvious suggestion of either restrictive or constrictive physiology.
RECOMMENDATIONS
1. Optimization of medical therapy for possible microvascular spasm and aggressive management of cardiovascular risk factors.
2. Wean radial band per protocol.
Perla Tsai MD, FACC, [facility]
== END 2024-06-20 16:45 | disposition home or self-care (01) ==
LOC: CATH 09:54
PROVIDERS: ATTENDING PHYSICIAN Internal Medicine Interventional Cardiology; FAMILY PHYSICIAN Family Medicine
DX: I25.10 Atherosclerotic heart disease of native coronary artery without angina pectoris (principal); I10 Essential (primary) hypertension; E78.5 Hyperlipidemia, unspecified; E11.9 Type 2 diabetes mellitus without complications; Z79.84 Long term (current) use of oral hypoglycemic drugs; Z79.82 Long term (current) use of aspirin; Z79.85 Long-term (current) use of injectable non-insulin antidiabetic drugs
CPT/HCPCS: 93799; 99152; 99153; C1769; C1894; 82962; 85347; 93460; Q9967

== ENCOUNTER → 2025-03-28 11:34 | Outpatient (REF) | payer MEDICARE, SELFPAY | LOC: HWRAD 11:34 | PROVIDERS: ATTENDING PHYSICIAN Internal Medicine Endocrinology, Diabetes & Metabolism; FAMILY PHYSICIAN Family Medicine | DX: E27.8 Other specified disorders of adrenal gland (principal) | CPT/HCPCS: 74150 ==